=== PATIENT | male | born 1940 | race Hispanic/Latino ===

== ENCOUNTER → 2019-03-21 | Outpatient (CLI) | payer MEDICARE | LOC: SLEEP 19:51 | PROVIDERS: ATTEND Internal Medicine Pulmonary Disease | DX: G47.33 Obstructive sleep apnea (adult) (pediatric) (principal) | CPT/HCPCS: 95811 ==

== ENCOUNTER 2019-04-11 16:12 | Emergency (ER) | payer MEDICARE ==
[~2019-04-11] VITALS: Ht 170.2 cm; Wt 106.6 kg
--- OUTSIDE RECORDS SUMMARY | 2019-04-11 16:15 | XMS REPORT ---
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 Allergies, Adverse Reactions, Alerts Allergy Name Allergy Type Status Severity Reaction(s) Onset Date Inactive Date Treating Clinician Comments No Known Allergies DA Active U 2019-02-28 00:00:00 No Known Allergies DA Active U 2019-01-21 00:00:00 No Known Allergies DA Active U 2018-02-05 00:00:00 No Known Drug Intolerances DA Active U 2007-02-03 00:00:00 No Known Contrast Allergies DA Active U 2007-02-03 00:00:00 No Known Drug Allergies DA Active U 2007-02-03 00:00:00 No Known Food Allergies DA Active U 2007-02-03 00:00:00 No Known Other Allergies DA Active U 2007-02-03 00:00:00 Medications This patient has no known medications. Results Test Description Test Time Test Comments Text Results Atomic Results Result Comments - XR ABDOMEN AP 1 V 2019-04-01 11:40:00 FAX: Silvia Ortega MD [phone] [place]: B St: [facility] FAX: Shahrzad Lewis MD [phone] FAX: Taiwo Aguillon I [phone] Name: TUAN FREGOSO [facility] : 1940 Age/S: 78/M [address] [facility] Unit #: [id number] Loc: V.3108 [place] [address] Phys: Shahrzad Jaeger MD Acct: [id number] Dis Date: Status: ADM IN PHONE #: [phone] Exam Date: 04/01/2019 1120 FAX #: [phone] Reason: ABDOMINAL PAIN EXAMS: CPT CODE: [id number] XR ABDOMEN AP 1 V 55225 HISTORY: ABDOMINAL PAIN TECHNIQUE: AP abdomen x-ray COMPARISON: None FINDINGS: Nonobstructive bowel gas pattern. No significant stool burden. No intra-abdominal mass effect. No abnormal calcifications are observed. Prior cholecystectomy. There are degenerative changes throughout the visualized spine. Visualized thorax is within normal limits. IMPRESSION: No radiographic evidence of acute intra-abdominal process. Location: [facility] at 1140 Reported and signed by: Tylor Soriano MD CC: Silvia Jo MD; Shahrzad Jaeger MD; Taiwo Lowery MD Technologist: RT LEONEL(R) Trnscrd Date/Time/By: 04/01/2019 (5138) : By: [email or web address] Orig Print D/T: S: 04/01/2019 (6326) PAGE 1 Signed Report URINALYSIS COMPLETE 2019-04-01 01:04:00 UA COLOR (test code=COLU) YELLOW YELLOW UA APPEARANCE (test code=APPU) CLEAR CLEAR UA GLUCOSE DIPSTICK (test code=DGLUU) NEGATIVE mg/dL NEGATIVE UA BILIRUBIN DIPSTICK (test code=BILU) NEGATIVE mg/dL NEGATIVE UA KETONE DIPSTICK (test code=KETU) NEGATIVE mg/dL NEGATIVE UA SPECIFIC GRAVITY (test code=SGU) 1.022 1.001-1.035 UA BLOOD DIPSTICK (test code=HIRO) 0.03 mg/dL (Trace) mg/dL NEGATIVE UA PH DIPSTICK (test code=JUSITCE) 5.0 5.0-8.0 UA PROTEIN DIPSTICK (test code=PROU) 20 (Trace) mg/dL NEGATIVE UA UROBILINIOGEN DIPSTICK (test code=URO) Normal mg/dL NEGATIVE UA NITRITE DIPSTICK (test code=RAMON) NEGATIVE NEGATIVE UA LEUKOCYTE ESTERASE W REFLEX (test code=LEUUR) 250 Birdie/uL (2+) Birdie/uL NEGATIVE UA WBC (test code=WBCU) 21-50 per HPF 0-5 UA RBC (test code=RBCU) 0-2 #/HPF 0-5 UA EPITHELIAL CELLS (test code=EPIU) FEW per HPF FEW UA BACTERIA (test code=BACU) FEW #/HPF NONE UA MUCUS (test code=MUCU) FEW #/LPF FEW Urine Source? Clean CatchUR NA,[id number] 01:04:00* Test Item Value Reference Range Comments UR NA,RANDOM (test code=MICHAEL) 40 mmol/L 20-110 Urine Source? Clean CatchUR PROTEIN/CREATININE [id number] 01:04:00* Test Item Value Reference Range Comments UR PROTEIN RANDOM (test code=PROTU) 28.9 mg/dL 0.0-11.9 Protein levels may be falsely elevated in patients withelevated level of aminoglycoside antibiotics in CSF and inhighly concentrated urine specimens. If false elevation issuspected, contact lab for alternated testing technique. UR CREATININE RANDOM (test code=CREATU) 150.0 mg/dL 30-125 PROTEIN/CREATININE RATIO (test code=P/CRATIO) 0.19 RATIO 0.0-0.20 Urine Source? Clean CatchURINALYSIS [id number] 00:52:00* Test Item Value Reference Range Comments UA COLOR (test code=COLU) YELLOW YELLOW UA APPEARANCE (test code=APPU) CLEAR CLEAR UA GLUCOSE DIPSTICK (test code=DGLUU) NEGATIVE mg/dL NEGATIVE UA BILIRUBIN DIPSTICK (test code=BILU) NEGATIVE mg/dL NEGATIVE UA KETONE DIPSTICK (test code=KETU) NEGATIVE mg/dL NEGATIVE UA SPECIFIC GRAVITY (test code=SGU) 1.022 1.001-1.035 UA BLOOD DIPSTICK (test code=HIRO) 0.03 mg/dL (Trace) mg/dL NEGATIVE UA PH DIPSTICK (test code=JUSTICE) 5.0 5.0-8.0 UA PROTEIN DIPSTICK (test code=PROU) 20 (Trace) mg/dL NEGATIVE UA UROBILINIOGEN DIPSTICK (test code=URO) Normal mg/dL NEGATIVE UA NITRITE DIPSTICK (test code=RAMON) NEGATIVE NEGATIVE UA LEUKOCYTE ESTERASE W REFLEX (test code=LEUUR) 250 Birdie/uL (2+) Birdie/uL NEGATIVE UA WBC (test code=WBCU) 21-50 per HPF 0-5 UA RBC (test code=RBCU) 0-2 #/HPF 0-5 UA EPITHELIAL CELLS (test code=EPIU) FEW per HPF FEW UA BACTERIA (test code=BACU) FEW #/HPF NONE UA MUCUS (test code=MUCU) FEW #/LPF FEW Urine Source? [facility] C[facility] NA,[id number] 00:52:00* Test Item Value Reference Range Comments UR NA,RANDOM (test code=MICHAEL) 40 mmol/L 20-110 Urine Source? Clean [facility]UR PROTEIN/CREATININE [id number] 00:52:00* Test Item Value Reference Range Comments UR PROTEIN RANDOM (test code=PROTU) mg/dL 0.0-11.9 UR CREATININE RANDOM (test code=CREATU) mg/dL 30-125 PROTEIN/CREATININE RATIO (test code=P/CRATIO) RATIO 0.0-0.20 Urine Source? Clean CatchURINALYSIS [id number] 00:51:00* Test Item Value Reference Range Comments UA COLOR (test code=COLU) YELLOW YELLOW UA APPEARANCE (test code=APPU) CLEAR CLEAR UA GLUCOSE DIPSTICK (test code=DGLUU) NEGATIVE mg/dL NEGATIVE UA BILIRUBIN DIPSTICK (test code=BILU) NEGATIVE mg/dL NEGATIVE UA KETONE DIPSTICK (test code=KETU) NEGATIVE mg/dL NEGATIVE UA SPECIFIC GRAVITY (test code=SGU) 1.022 1.001-1.035 UA BLOOD DIPSTICK (test code=HIRO) 0.03 mg/dL (Trace) mg/dL NEGATIVE UA PH DIPSTICK (test code=JUSTICE) 5.0 5.0-8.0 UA PROTEIN DIPSTICK (test code=PROU) 20 (Trace) mg/dL NEGATIVE UA UROBILINIOGEN DIPSTICK (test code=URO) Normal mg/dL NEGATIVE UA NITRITE DIPSTICK (test code=RAMON) NEGATIVE NEGATIVE UA LEUKOCYTE ESTERASE W REFLEX (test code=LEUUR) 250 Birdie/uL (2+) Birdie/uL NEGATIVE UA WBC (test code=WBCU) 21-50 per HPF 0-5 UA RBC (test code=RBCU) 0-2 #/HPF 0-5 UA EPITHELIAL CELLS (test code=EPIU) FEW per HPF FEW UA BACTERIA (test code=BACU) FEW #/HPF NONE UA MUCUS (test code=MUCU) FEW #/LPF FEW Urine Source? Clean CatchUR NA,[id number] 00:51:00* Test Item Value Reference Range Comments UR NA,RANDOM (test code=MICHAEL) mmol/L 20-110 Urine Source? Clean CatchUR PROTEIN/CREATININE [id number] 00:51:00* Test Item Value Reference Range Comments UR PROTEIN RANDOM (test code=PROTU) mg/dL 0.0-11.9 UR CREATININE RANDOM (test code=CREATU) mg/dL 30-125 PROTEIN/CREATININE RATIO (test code=P/CRATIO) RATIO 0.0-0.20 Urine Source? Clean CatchURINALYSIS [id number] 00:46:00* Test Item Value Reference Range Comments UA COLOR (test code=COLU) YELLOW YELLOW UA APPEARANCE (test code=APPU) CLEAR CLEAR UA GLUCOSE DIPSTICK (test code=DGLUU) NEGATIVE mg/dL NEGATIVE UA BILIRUBIN DIPSTICK (test code=BILU) NEGATIVE mg/dL NEGATIVE UA KETONE DIPSTICK (test code=KETU) NEGATIVE mg/dL NEGATIVE UA SPECIFIC GRAVITY (test code=SGU) 1.022 1.001-1.035 UA BLOOD DIPSTICK (test code=HIRO) 0.03 mg/dL (Trace) mg/dL NEGATIVE UA PH DIPSTICK (test code=JUSTICE) 5.0 5.0-8.0 UA PROTEIN DIPSTICK (test code=PROU) 20 (Trace) mg/dL NEGATIVE UA UROBILINIOGEN DIPSTICK (test code=URO) Normal mg/dL NEGATIVE UA NITRITE DIPSTICK (test code=RAMON) NEGATIVE NEGATIVE UA LEUKOCYTE ESTERASE W REFLEX (test code=LEUUR) 250 Birdie/uL (2+) Birdie/uL NEGATIVE UA WBC (test code=WBCU) per HPF 0-5 UA RBC (test code=RBCU) per HPF 0-5 UA EPITHELIAL CELLS (test code=EPIU) per HPF Few UA BACTERIA (test code=BACU) per HPF NONE Urine Source? Clean CatchUR NA,[id number] 00:46:00* Test Item Value Reference Range Comments UR NA,RANDOM (test code=MICHAEL) mmol/L 20-110 Urine Source? Clean CatchUR PROTEIN/CREATININE [id number] 00:46:00* Test Item Value Reference Range Comments UR PROTEIN RANDOM (test code=PROTU) mg/dL 0.0-11.9 UR CREATININE RANDOM (test code=CREATU) mg/dL 30-125 PROTEIN/CREATININE RATIO (test code=P/CRATIO) RATIO 0.0-0.20 Urine Source? Clean CatchCOMPREHENSIVE METABOLIC [id number] 14:28:00* Test Item Value Reference Range Comments SODIUM (test code=NA) 140 mmol/L 136-145 POTASSIUM (test code=K) 4.0 mmol/L 3.5-5.1 CHLORIDE (test code=CL) 104.0 mmol/L 98-107 CARBON DIOXIDE (test code=CO2) 28.0 mmol/L 21-32 ANION GAP (test code=GAP) 12.0 10-20 GLUCOSE (test code=GLU) 111 mg/dL 74-106 BLOOD UREA NITROGEN (test code=BUN) 35 mg/dL 7-18 GLOMERULAR FILTRATION RATE (test code=GFR) 59 mL/min >=60 Estimated GFR by using Modified MDRD formula.Chronic kidney disease is defined as either kidney damageor GFR <60 mL/min/1.73 m2 for >3 months. CREATININE (test code=CREAT) 1.20 mg/dL 0.7-1.3 BUN/CREATININE RATIO (test code=BUN/CREA) 29.2 10-20 TOTAL PROTEIN (test code=PROT) 6.9 gram/dL 6.4-8.2 ALBUMIN (test code=ALB) 2.8 g/dL 3.4-5.0 GLOBULIN (test code=GLOB) 4.1 gram/dL 2.7-4.2 ALBUMIN/GLOBULIN RATIO (test code=A/G) 0.7 0.75-1.50 CALCIUM (test code=CA) 8.7 mg/dL 8.5-10.1 BILIRUBIN TOTAL (test code=BILT) 0.30 mg/dL 0.0-1.0 SGOT/AST (test code=AST) 16 IUnit/L 15-37 SGPT/ALT (test code=ALT) 31 IUnit/L 12-78 ALKALINE PHOSPHATASE TOTAL (test code=ALKP) 137 IUnit/L 45-117 Note change in reference range due to change in reagent. COMPREHENSIVE METABOLIC [id number] 14:19:00* Test Item Value Reference Range Comments SODIUM (test code=NA) 140 mmol/L 136-145 POTASSIUM (test code=K) 4.0 mmol/L 3.5-5.1 CHLORIDE (test code=CL) 104.0 mmol/L 98-107 CARBON DIOXIDE (test code=CO2) mmol/L 21-32 ANION GAP (test code=GAP) 10-20 GLUCOSE (test code=GLU) mg/dL 74-106 BLOOD UREA NITROGEN (test code=BUN) mg/dL 7-18 GLOMERULAR FILTRATION RATE (test code=GFR) mL/min >=60 CREATININE (test code=CREAT) mg/dL 0.7-1.3 BUN/CREATININE RATIO (test code=BUN/CREA) 10-20 TOTAL PROTEIN (test code=PROT) gram/dL 6.4-8.2 ALBUMIN (test code=ALB) g/dL 3.4-5.0 GLOBULIN (test code=GLOB) gram/dL 2.7-4.2 ALBUMIN/GLOBULIN RATIO (test code=A/G) 0.75-1.50 CALCIUM (test code=CA) mg/dL 8.5-10.1 BILIRUBIN TOTAL (test code=BILT) mg/dL 0.0-1.0 SGOT/AST (test code=AST) IUnit/L 15-37 SGPT/ALT (test code=ALT) IUnit/L 12-78 ALKALINE PHOSPHATASE TOTAL (test code=ALKP) IUnit/L 45-117 [id number] 14:26:00* Test Item Value Reference Range Comments GLYCOSYLATED HEMOGLOBIN (HA1C) (test code=GLYHGB) 5.9 % HbA1 SUGGESTED DIAGNOSIS: HbA1C (%) Diabetic >6.4Prediabetes 5.7 - 6.4Normal <5.7 ESTIMATED AVERAGE GLUCOSE (test code=EAG) 123 MG/DL - US RETRO [id number] 12:49:00 Name: TUAN FREGOSO [facility] : 1940 Age/S: 78 / M [address] [facility] Unit #: [id number] Loc: [place] [address] Phys: Shahrzad Jaeger MD Acct: [id number] Dis Date: Status: ADM IN PHONE #: [phone] Exam Date: 03/30/2019 1209 FAX #: [phone] Reason: POOR KIDNEY FUNCTION EXAMS: CPT CODE: [id number] RETRO LTD 73056 HISTORY: POOR KIDNEY FUNCTION TECHNIQUE: Static grayscale and color Doppler images from real-time sonographic evaluation of the bilateral kidneys. Correlation with CT 01/02/19. FINDINGS: Limited visualization due to body habitus. Right kidney measures 11.2 x 5.7 x 5.4 cm. Normal parenchymal echogenicity. No mass or calculus. No hydronephrosis. Left kidney measures 11.0 x 5.4 x 5.0 cm. Normal parenchymal echogenicity. No mass or calculus. No hydronephrosis. IMPRESSION: No renal parenchymal abnormality. No hydronephrosis. LOCATION: [facility] at 1249 Reported and signed by: Libby King D.O. CC: Silvia Jo MD; Shahrzad Jaeger MD; Taiwo Lowery MD Technologist: VANNESA ZIMMERMAN Trnidb Date/Time: 03/30/2019 (8185) [email or web address] Orig Print D/T: S: 03/30/2019 (3287) Probe: PAGE 1 Signed Report COMPREHENSIVE METABOLIC [id number] 19:17:00* Test Item Value Reference Range Comments SODIUM (test code=NA) 140 mmol/L 136-145 POTASSIUM (test code=K) 3.9 mmol/L 3.5-5.1 CHLORIDE (test code=CL) 103.0 mmol/L 98-107 CARBON DIOXIDE (test code=CO2) 28.0 mmol/L 21-32 ANION GAP (test code=GAP) 12.9 10-20 GLUCOSE (test code=GLU) 116 mg/dL 74-106 BLOOD UREA NITROGEN (test code=BUN) 46 mg/dL 7-18 GLOMERULAR FILTRATION RATE (test code=GFR) 49 mL/min >=60 Estimated GFR by using Modified MDRD formula.Chronic kidney disease is defined as either kidney damageor GFR <60 mL/min/1.73 m2 for >3 months. CREATININE (test code=CREAT) 1.40 mg/dL 0.7-1.3 BUN/CREATININE RATIO (test code=BUN/CREA) 32.9 10-20 TOTAL PROTEIN (test code=PROT) 7.2 gram/dL 6.4-8.2 ALBUMIN (test code=ALB) 2.9 g/dL 3.4-5.0 GLOBULIN (test code=GLOB) 4.3 gram/dL 2.7-4.2 ALBUMIN/GLOBULIN RATIO (test code=A/G) 0.7 0.75-1.50 CALCIUM (test code=CA) 8.7 mg/dL 8.5-10.1 BILIRUBIN TOTAL (test code=BILT) 0.30 mg/dL 0.0-1.0 SGOT/AST (test code=AST) 17 IUnit/L 15-37 SGPT/ALT (test code=ALT) 42 IUnit/L 12-78 ALKALINE PHOSPHATASE TOTAL (test code=ALKP) 161 IUnit/L 45-117 Note change in reference range due to change in reagent. COMPREHENSIVE METABOLIC [id number] 19:13:00* Test Item Value Reference Range Comments SODIUM (test code=NA) 140 mmol/L 136-145 POTASSIUM (test code=K) 3.9 mmol/L 3.5-5.1 CHLORIDE (test code=CL) 103.0 mmol/L 98-107 CARBON DIOXIDE (test code=CO2) mmol/L 21-32 ANION GAP (test code=GAP) 10-20 GLUCOSE (test code=GLU) mg/dL 74-106 BLOOD UREA NITROGEN (test code=BUN) mg/dL 7-18 GLOMERULAR FILTRATION RATE (test code=GFR) mL/min >=60 CREATININE (test code=CREAT) mg/dL 0.7-1.3 BUN/CREATININE RATIO (test code=BUN/CREA) 10-20 TOTAL PROTEIN (test code=PROT) gram/dL 6.4-8.2 ALBUMIN (test code=ALB) g/dL 3.4-5.0 GLOBULIN (test code=GLOB) gram/dL 2.7-4.2 ALBUMIN/GLOBULIN RATIO (test code=A/G) 0.75-1.50 CALCIUM (test code=CA) mg/dL 8.5-10.1 BILIRUBIN TOTAL (test code=BILT) mg/dL 0.0-1.0 SGOT/AST (test code=AST) IUnit/L 15-37 SGPT/ALT (test code=ALT) IUnit/L 12-78 ALKALINE PHOSPHATASE TOTAL (test code=ALKP) IUnit/L 45-117 CBC W/AUTO [id number] 18:48:00* Test Item Value Reference Range Comments WHITE BLOOD CELL (test code=WBC) 10.1 K/mm3 4.5-12.5 RED BLOOD CELL (test code=RBC) 4.83 mill/mm3 4.0-5.8 HEMOGLOBIN (test code=HGB) 14.0 gram/dL 13.0-17.5 HEMATOCRIT (test code=HCT) 44.2 % 42.0-52.0 MEAN CELL VOLUME (test code=MCV) 91.5 fL 80-98 MEAN CELL HGB (test code=MCH) 29.0 picogram 27.0-33.0 MEAN CELL HGB CONCETRATION (test code=MCHC) 31.7 gram/dL 33.0-36.0 RED CELL DISTRIBUTION WIDTH (test code=RDW) 13.4 % 11.6-16.2 RED CELL DISTRIBUTION WIDTH SD (test code=RDW-SD) 45.4 fL 37.0-51.0 PLATELET COUNT (test code=PLT) 205 K/mm3 150-450 MEAN PLATELET VOLUME (test code=MPV) 10.1 fL 6.7-11.0 NEUTROPHIL % (test code=NT%) 75.1 % 39.0-69.0 IMMATURE GRANULOCYTE % (test code=IG%) 2.1 % 0.0-5.0 LYMPHOCYTE % (test code=LY%) 10.5 % 25.0-55.0 MONOCYTE % (test code=MO%) 10.8 % 0.0-10.0 EOSINOPHIL % (test code=EO%) 1.1 % 0.0-5.0 BASOPHIL % (test code=BA%) 0.4 % 0.0-1.0 NUCLEATED RBC % (test code=NRBC%) 0.0 % 0-0 NEUTROPHIL # (test code=NT#) 7.60 K/mm3 1.8-7.7 IMMATURE GRANULOCYTE # (test code=IG#) 0.21 x10 3/uL 0-0.03 LYMPHOCYTE # (test code=LY#) 1.06 K/mm3 1.0-5.0 MONOCYTE # (test code=MO#) 1.09 K/mm3 0-0.8 EOSINOPHIL # (test code=EO#) 0.11 K/mm3 0.0-0.5 BASOPHIL # (test code=BA#) 0.04 K/mm3 0.0-0.2 NUCLEATED RBC # (test code=NRBC#) 0.00 K/mm3 0.0-0.1 - US SCROTUM AND [id number] 18:47:00 Name: TUAN FREGOSO [facility] : 1940 Age/S: 78 / M [address] [facility] Unit #: [id number] Loc: [place] [address] Phys: Taiwo Lowery MD Acct: [id number] Dis Date: Status: ADM IN PHONE #: [phone] Exam Date: 03/28/2019 0876 FAX #: [phone] Reason: SWOLLEN SCROTUM EXAMS: CPT CODE: [id number] US SCROTUM AND CNTS 05236 EXAM: Scrotal ultrasound and duplex sonography; INFORMATION: Swollen scrotum; sepsis; UTI; TECHNIQUE AND FINDINGS: Grayscale imaging was combined with color Doppler sonography and spectral analysis. FINDINGS: The testicles of normal size and shape. They show homogeneous echotexture normal flow pattern on Doppler exam. The right testicle measures 2.9 x 2.7 x 2.7 cm. The left testicle measures 3.5 x 2.2 x 3.1 cm. There are small epididymal cysts on the right, measuring around 1 cm in diameter. Otherwise, the epididymis is unremarkable bilaterally. Partially septated moderate right- sided hydrocele and small left-sided hydrocele. There is diffuse thickening of the scrotal wall and there is a focal area of thickening with small hypoechoic fluid collections and significant hyperemia in the periphery of these collections. IMPRESSION: 1. Thickening of the scrotal wall with signs of inflammation and probable small abscesses inferior to the right testicle. 2. No testicular abnorma lities. 3. Small right epididymal cysts. 4. Partially septated r ight hydrocele and small left hydrocele. Location code: [facility] at 1847 Reported and signed by: Cedrick Song M.D. CC: Silvia Jo MD; Taiwo Eid MD Technologist: Ashwin Gan Trnscb Date/Time: 03/28/2019 (1846) [email or web address] Orig Print D/T: S: 03/28/2019 (1849) Probe: PAGE 1 Signed Report BASIC METABOLIC [id number] 07:48:00* Test Item Value Reference Range Comments SODIUM (test code=NA) 141 mmol/L 136-145 POTASSIUM (test code=K) 4.0 mmol/L 3.5-5.1 CHLORIDE (test code=CL) 109.0 mmol/L 98-107 CARBON DIOXIDE (test code=CO2) 26.0 mmol/L 21-32 ANION GAP (test code=GAP) 10.0 10-20 GLUCOSE (test code=GLU) 111 mg/dL 74-106 BLOOD UREA NITROGEN (test code=BUN) 34 mg/dL 7-18 GLOMERULAR FILTRATION RATE (test code=GFR) 45 mL/min >=60 Estimated GFR by using Modified MDRD formula.Chronic kidney disease is defined as either kidney damageor GFR <60 mL/min/1.73 m2 for >3 months. CREATININE (test code=CREAT) 1.50 mg/dL 0.7-1.3 BUN/CREATININE RATIO (test code=BUN/CREA) 22.7 10-20 CALCIUM (test code=CA) 8.8 mg/dL 8.5-10.1 BASIC METABOLIC [id number] 07:39:00* Test Item Value Reference Range Comments SODIUM (test code=NA) 141 mmol/L 136-145 POTASSIUM (test code=K) 4.0 mmol/L 3.5-5.1 CHLORIDE (test code=CL) 109.0 mmol/L 98-107 CARBON DIOXIDE (test code=CO2) mmol/L 21-32 ANION GAP (test code=GAP) 10-20 GLUCOSE (test code=GLU) mg/dL 74-106 BLOOD UREA NITROGEN (test code=BUN) mg/dL 7-18 GLOMERULAR FILTRATION RATE (test code=GFR) mL/min >=60 CREATININE (test code=CREAT) mg/dL 0.7-1.3 BUN/CREATININE RATIO (test code=BUN/CREA) 10-20 CALCIUM (test code=CA) mg/dL 8.5-10.1 BASIC METABOLIC [id number] 12:13:00* Test Item Value Reference Range Comments SODIUM (test code=NA) 142 mmol/L 136-145 POTASSIUM (test code=K) 3.9 mmol/L 3.5-5.1 CHLORIDE (test code=CL) 112.0 mmol/L 98-107 CARBON DIOXIDE (test code=CO2) 23.0 mmol/L 21-32 ANION GAP (test code=GAP) 10.9 10-20 GLUCOSE (test code=GLU) 113 mg/dL 74-106 BLOOD UREA NITROGEN (test code=BUN) 29 mg/dL 7-18 GLOMERULAR FILTRATION RATE (test code=GFR) 59 mL/min >=60 Estimated GFR by using Modified MDRD formula.Chronic kidney disease is defined as either kidney damageor GFR <60 mL/min/1.73 m2 for >3 months. CREATININE (test code=CREAT) 1.20 mg/dL 0.7-1.3 BUN/CREATININE RATIO (test code=BUN/CREA) 24.2 10-20 CALCIUM (test code=CA) 8.2 mg/dL 8.5-10.1 CBC W/AUTO [id number] 11:12:00* Test Item Value Reference Range Comments WHITE BLOOD CELL (test code=WBC) 9.0 K/mm3 4.5-12.5 RED BLOOD CELL (test code=RBC) 4.32 mill/mm3 4.0-5.8 HEMOGLOBIN (test code=HGB) 12.5 gram/dL 13.0-17.5 HEMATOCRIT (test code=HCT) 39.7 % 42.0-52.0 MEAN CELL VOLUME (test code=MCV) 91.9 fL 80-98 MEAN CELL HGB (test code=MCH) 28.9 picogram 27.0-33.0 MEAN CELL HGB CONCETRATION (test code=MCHC) 31.5 gram/dL 33.0-36.0 RED CELL DISTRIBUTION WIDTH (test code=RDW) 14.0 % 11.6-16.2 RED CELL DISTRIBUTION WIDTH SD (test code=RDW-SD) 47.0 fL 37.0-51.0 PLATELET COUNT (test code=PLT) 152 K/mm3 150-450 MEAN PLATELET VOLUME (test code=MPV) 10.4 fL 6.7-11.0 NEUTROPHIL % (test code=NT%) 80.7 % 39.0-69.0 IMMATURE GRANULOCYTE % (test code=IG%) 0.8 % 0.0-5.0 LYMPHOCYTE % (test code=LY%) 6.9 % 25.0-55.0 MONOCYTE % (test code=MO%) 10.3 % 0.0-10.0 EOSINOPHIL % (test code=EO%) 1.2 % 0.0-5.0 BASOPHIL % (test code=BA%) 0.1 % 0.0-1.0 NUCLEATED RBC % (test code=NRBC%) 0.0 % 0-0 NEUTROPHIL # (test code=NT#) 7.25 K/mm3 1.8-7.7 IMMATURE GRANULOCYTE # (test code=IG#) 0.07 x10 3/uL 0-0.03 LYMPHOCYTE # (test code=LY#) 0.62 K/mm3 1.0-5.0 MONOCYTE # (test code=MO#) 0.93 K/mm3 0-0.8 EOSINOPHIL # (test code=EO#) 0.11 K/mm3 0.0-0.5 BASOPHIL # (test code=BA#) 0.01 K/mm3 0.0-0.2 NUCLEATED RBC # (test code=NRBC#) 0.00 K/mm3 0.0-0.1 B-TYPE NATRIURETIC [id number] 23:15:00* Test Item Value Reference Range Comments B-TYPE NATRIURETIC PEPTIDE (test code=BNP) 352.50 pgram/mL 0-100 - XR CHEST 1 [id number] 21:27:00 FAX: Silvia Ortega MD [phone] [place]: St: [facility] FAX: Taiwo Aguillon I [phone] Name: TUAN FREGOSO [facility] : 1940 Age/S: 78/M [address] [facility] Unit #: [id number] Loc: .[address] [place] [address] Phys: Taiwo Lowery MD Acct: [id number] Dis Date: Status: ADM IN PHONE #: [phone] Exam Date: 03/26/20192105 FAX #: [phone] Reason: respiratory distress EXAMS: CPT CODE: [id number] XR CHEST 1 V [id number] EXAM: Chest x- ray, one view; INFORMATION: Respiratory distress; sepsis; IMPRESSION: 1. No evidence of active cardiopulmonary disease. 2. No significant change compared with the study from March 24, 2019. Location code: [facility] at 2127 Reported and signed by: Cedrick Song M.D. CC: Silvia Jo MD; Taiwo Lowery MD Technologist: Katie Crespo) Trnscrd Date/Time/By: 03/26/2019 (2126) : By: JackelynGRShay Orig Print D/T: S: 03/26/2019 (2129) PAGE 1 Signed Report CBC W/AUTO [id number] 12:08:00* Test Item Value Reference Range Comments WHITE BLOOD CELL (test code=WBC) 18.9 K/mm3 4.5-12.5 RED BLOOD CELL (test code=RBC) 4.64 mill/mm3 4.0-5.8 HEMOGLOBIN (test code=HGB) 13.5 gram/dL 13.0-17.5 HEMATOCRIT (test code=HCT) 42.9 % 42.0-52.0 MEAN CELL VOLUME (test code=MCV) 92.5 fL 80-98 MEAN CELL HGB (test code=MCH) 29.1 picogram 27.0-33.0 MEAN CELL HGB CONCETRATION (test code=MCHC) 31.5 gram/dL 33.0-36.0 RED CELL DISTRIBUTION WIDTH (test code=RDW) 14.3 % 11.6-16.2 RED CELL DISTRIBUTION WIDTH SD (test code=RDW-SD) 48.3 fL 37.0-51.0 PLATELET COUNT (test code=PLT) 162 K/mm3 150-450 MEAN PLATELET VOLUME (test code=MPV) 10.4 fL 6.7-11.0 NEUTROPHIL % (test code=NT%) 90.2 % 39.0-69.0 IMMATURE GRANULOCYTE % (test code=IG%) 1.0 % 0.0-5.0 LYMPHOCYTE % (test code=LY%) 3.7 % 25.0-55.0 MONOCYTE % (test code=MO%) 4.9 % 0.0-10.0 EOSINOPHIL % (test code=EO%) 0.0 % 0.0-5.0 BASOPHIL % (test code=BA%) 0.2 % 0.0-1.0 NUCLEATED RBC % (test code=NRBC%) 0.0 % 0-0 NEUTROPHIL # (test code=NT#) 17.07 K/mm3 1.8-7.7 IMMATURE GRANULOCYTE # (test code=IG#) 0.18 x10 3/uL 0-0.03 LYMPHOCYTE # (test code=LY#) 0.69 K/mm3 1.0-5.0 MONOCYTE # (test code=MO#) 0.92 K/mm3 0-0.8 EOSINOPHIL # (test code=EO#) 0.00 K/mm3 0.0-0.5 BASOPHIL # (test code=BA#) 0.03 K/mm3 0.0-0.2 NUCLEATED RBC # (test code=NRBC#) 0.00 K/mm3 0.0-0.1 BASIC METABOLIC [id number] 12:06:00* Test Item Value Reference Range Comments SODIUM (test code=NA) 141 mmol/L 136-145 POTASSIUM (test code=K) 4.4 mmol/L 3.5-5.1 CHLORIDE (test code=CL) 114.0 mmol/L 98-107 CARBON DIOXIDE (test code=CO2) 21.0 mmol/L 21-32 ANION GAP (test code=GAP) 10.4 10-20 GLUCOSE (test code=GLU) 157 mg/dL 74-106 BLOOD UREA NITROGEN (test code=BUN) 30 mg/dL 7-18 GLOMERULAR FILTRATION RATE (test code=GFR) 49 mL/min >=60 Estimated GFR by using Modified MDRD formula.Chronic kidney disease is defined as either kidney damageor GFR <60 mL/min/1.73 m2 for >3 months. CREATININE (test code=CREAT) 1.40 mg/dL 0.7-1.3 BUN/CREATININE RATIO (test code=BUN/CREA) 21.4 10-20 CALCIUM (test code=CA) 8.1 mg/dL 8.5-10.1 B-TYPE NATRIURETIC [id number] 21:04:00* Test Item Value Reference Range Comments B-TYPE NATRIURETIC PEPTIDE (test code=BNP) 156.66 pgram/mL 0-100 BASIC METABOLIC [id number] 19:34:00* Test Item Value Reference Range Comments SODIUM (test code=NA) 138 mmol/L 136-145 POTASSIUM (test code=K) 4.8 mmol/L 3.5-5.1 CHLORIDE (test code=CL) 109.0 mmol/L 98-107 CARBON DIOXIDE (test code=CO2) 23.0 mmol/L 21-32 ANION GAP (test code=GAP) 10.8 10-20 GLUCOSE (test code=GLU) 94 mg/dL 74-106 BLOOD UREA NITROGEN (test code=BUN) 33 mg/dL 7-18 GLOMERULAR FILTRATION RATE (test code=GFR) 39 mL/min >=60 Estimated GFR by using Modified MDRD formula.Chronic kidney disease is defined as either kidney damageor GFR <60 mL/min/1.73 m2 for >3 months. CREATININE (test code=CREAT) 1.70 mg/dL 0.7-1.3 BUN/CREATININE RATIO (test code=BUN/CREA) 19.4 10-20 CALCIUM (test code=CA) 9.1 mg/dL 8.5-10.1 CREATINE KINASE (CK)2019-03-24 19:34:00* Test Item Value Reference Range Comments CREATINE KINASE (CK) (test code=CK) 149 IUnit/L 26-208 [id number] 19:34:00* Test Item Value Reference Range Comments MAGNESIUM (test code=MAG) 2.1 mg/dL 1.8-2.4 [id number] 19:34:00* Test Item Value Reference Range Comments TROPONIN-I (test code=TROPI) <0.015 ng/mL 0-0.045 LACTIC [id number] 19:30:00* Test Item Value Reference Range Comments LACTIC ACID (test code=LACT) 1.7 mmol/L 0.4-1.9 PROTHROMBIN [id number] 19:27:00* Test Item Value Reference Range Comments PROTHROMBIN TIME PATIENT (test code=PTP) 12.7 seconds 9.0-14.0 INTERNATIONAL NORMAL RATIO (test code=INR) 1.1 0.8-1.2 The therapeutic range for oral anticoagulant therapy formost indications is an international normalized ratio (INR)of between 2.0 and 3.0. The recommended therapeutic INRrange for various clinical situations is listed below: Clinical Situation INR range Pulmonary e mbolism treatment (2.0-3.0)Venous thrombosis treatmentVenous thrombosis prophylaxis (high risk surgery)Prevention of systemic embolism from: Acute myocardial infarction Valvular heart disease Atrial fibrillation Mechanical prosthetic heart valves (2.5-3.5) IS PATIENT ON ANTICOAGULANTS? NTHROMBOPLASTIN TIME [id number] 19:27:00* Test Item Value Reference Range Comments THROMBOPLASTIN TIME PARTIAL (test code=PTT) 30.7 seconds 25.0-36.5 IS PATIENT ON ANTICOAGULANTS? NBASIC METABOLIC [id number] 19:24:00* Test Item Value Reference Range Comments SODIUM (test code=NA) 138 mmol/L 136-145 POTASSIUM (test code=K) 4.8 mmol/L 3.5-5.1 CHLORIDE (test code=CL) 109.0 mmol/L 98-107 CARBON DIOXIDE (test code=CO2) mmol/L 21-32 ANION GAP (test code=GAP) 10-20 GLUCOSE (test code=GLU) mg/dL 74-106 BLOOD UREA NITROGEN (test code=BUN) mg/dL 7-18 GLOMERULAR FILTRATION RATE (test code=GFR) mL/min >=60 CREATININE (test code=CREAT) mg/dL 0.7-1.3 BUN/CREATININE RATIO (test code=BUN/CREA) 10-20 CALCIUM (test code=CA) 9.1 mg/dL 8.5-10.1 CREATINE KINASE (CK)2019-03-24 19:24:00* Test Item Value Reference Range Comments CREATINE KINASE (CK) (test code=CK) IUnit/L 26-208 [id number] 19:24:00* Test Item Value Reference Range Comments MAGNESIUM (test code=MAG) mg/dL 1.8-2.4 [id number] 19:24:00* Test Item Value Reference Range Comments TROPONIN-I (test code=TROPI) ng/mL 0-0.045 CBC W/O [id number] 19:21:00* Test Item Value Reference Range Comments WHITE BLOOD CELL (test code=WBC) 27.7 K/mm3 4.5-12.5 RED BLOOD CELL (test code=RBC) 5.20 mill/mm3 4.0-5.8 HEMOGLOBIN (test code=HGB) 15.2 gram/dL 13.0-17.5 HEMATOCRIT (test code=HCT) 47.5 % 42.0-52.0 MEAN CELL VOLUME (test code=MCV) 91.3 fL 80-98 MEAN CELL HGB (test code=MCH) 29.2 picogram 27.0-33.0 MEAN CELL HGB CONCETRATION (test code=MCHC) 32.0 gram/dL 33.0-36.0 RED CELL DISTRIBUTION WIDTH (test code=RDW) 13.9 % 11.6-16.2 PLATELET COUNT (test code=PLT) 207 K/mm3 150-450 MEAN PLATELET VOLUME (test code=MPV) 10.2 fL 6.7-11.0 CBC W/O [id number] 19:18:00* Test Item Value Reference Range Comments WHITE BLOOD CELL (test code=WBC) K/mm3 4.5-12.5 RED BLOOD CELL (test code=RBC) mill/mm3 4.0-5.8 HEMOGLOBIN (test code=HGB) 15.2 gram/dL 13.0-17.5 HEMATOCRIT (test code=HCT) 47.5 % 42.0-52.0 MEAN CELL VOLUME (test code=MCV) fL 80-98 MEAN CELL HGB (test code=MCH) picogram 27.0-33.0 MEAN CELL HGB CONCETRATION (test code=MCHC) gram/dL 33.0-36.0 RED CELL DISTRIBUTION WIDTH (test code=RDW) % 11.6-16.2 PLATELET COUNT (test code=PLT) K/mm3 150-450 MEAN PLATELET VOLUME (test code=MPV) fL 6.7-11.0 - XR CHEST 1 [id number] 18:04:00 FAX: Mela Arellano [phone] [place]: B : [facility] FAX: Shahriar Matute MD [phone] Name: TUAN FREGOSO [facility] : 1940 Age/S: 78/M [address] [facility] Unit #: [id number] Loc: BHAKTI [place] [address] Phys: Mela Blanc MD Acct: [id number] Dis Date: Status: REG ER PHONE #: [phone] Exam Date: 03/24/2019 1726 FAX #: [phone] Reason: WEAKNESS EXAMS: CPT CODE: [id number] XR CHEST 1 V [id number] EXAM: Chest x-ray, one view; INFORMATION: Weakness; FINDINGS: Lungs are clear; no infiltrates, no edema; no effusions; no pneumothorax. The heart is normal in size. Aortic calcifications. IMPRESSION: No evidence of active cardiopulmonary disease. Location code: at 1804 Reported and signed by: Cedrick Song M.D. CC: Mela Blanc MD; Shahriar Esteves Technologist: KACI WILLIAMSON(R) Trnscrd Date/Time/By: 03/24/2019 (1803) : By: JackelynGRW Orig Print D/T: S: 03/24/2019 (1806) PAGE 1 Signed Report URINALYSIS [id number] 17:43:00* Test Item Value Reference Range Comments UA COLOR (test code=COLU) YELLOW YELLOW UA APPEARANCE (test code=APPU) CLOUDY CLEAR UA GLUCOSE DIPSTICK (test code=DGLUU) NEGATIVE mg/dL NEGATIVE UA BILIRUBIN DIPSTICK (test code=BILU) NEGATIVE mg/dL NEGATIVE UA KETONE DIPSTICK (test code=KETU) NEGATIVE mg/dL NEGATIVE UA SPECIFIC GRAVITY (test code=SGU) 1.018 1.001-1.035 UA BLOOD DIPSTICK (test code=HIRO) >1.0 mg/dL NEGATIVE UA PH DIPSTICK (test code=JUSTICE) 5.5 5.0-8.0 UA PROTEIN DIPSTICK (test code=PROU) 70 (1+) mg/dL NEGATIVE UA UROBILINIOGEN DIPSTICK (test code=URO) Normal mg/dL NEGATIVE UA NITRITE DIPSTICK (test code=RAMON) NEGATIVE NEGATIVE UA LEUKOCYTE ESTERASE W REFLEX (test code=LEUUR) 500 Birdie/uL (3+) Birdie/uL NEGATIVE UA WBC (test code=WBCU) >200 per HPF 0-5 UA RBC (test code=RBCU) 151-200 #/HPF 0-5 UA WBC CLUMPS (test code=WBCUCL) >10 /HPF NONE UA EPITHELIAL CELLS (test code=EPIU) None seen per HPF FEW UA BACTERIA (test code=BACU) FEW #/HPF NONE UA MUCUS (test code=MUCU) FEW #/LPF FEW Urine Source? Clean CatchBASIC METABOLIC [id number] 07:21:00* Test Item Value Reference Range Comments SODIUM (test code=NA) 142 mmol/L 136-145 POTASSIUM (test code=K) 4.5 mmol/L 3.5-5.1 CHLORIDE (test code=CL) 110.0 mmol/L 98-107 CARBON DIOXIDE (test code=CO2) 25.0 mmol/L 21-32 ANION GAP (test code=GAP) 11.5 10-20 GLUCOSE (test code=GLU) 85 mg/dL 74-106 BLOOD UREA NITROGEN (test code=BUN) 29 mg/dL 7-18 GLOMERULAR FILTRATION RATE (test code=GFR) 54 mL/min >=60 Estimated GFR by using Modified MDRD formula.Chronic kidney disease is defined as either kidney damageor GFR <60 mL/min/1.73 m2 for >3 months. CREATININE (test code=CREAT) 1.30 mg/dL 0.7-1.3 BUN/CREATININE RATIO (test code=BUN/CREA) 22.3 10-20 CALCIUM (test code=CA) 8.6 mg/dL 8.5-10.1 CBC W/AUTO [id number] 07:03:00* Test Item Value Reference Range Comments WHITE BLOOD CELL (test code=WBC) 7.5 K/mm3 4.5-12.5 RED BLOOD CELL (test code=RBC) 5.57 mill/mm3 4.0-5.8 HEMOGLOBIN (test code=HGB) 16.1 gram/dL 13.0-17.5 HEMATOCRIT (test code=HCT) 52.0 % 42.0-52.0 MEAN CELL VOLUME (test code=MCV) 93.4 fL 80-98 MEAN CELL HGB (test code=MCH) 28.9 picogram 27.0-33.0 MEAN CELL HGB CONCETRATION (test code=MCHC) 31.0 gram/dL 33.0-36.0 RED CELL DISTRIBUTION WIDTH (test code=RDW) 13.6 % 11.6-16.2 RED CELL DISTRIBUTION WIDTH SD (test code=RDW-SD) 46.4 fL 37.0-51.0 PLATELET COUNT (test code=PLT) 210 K/mm3 150-450 MEAN PLATELET VOLUME (test code=MPV) 9.9 fL 6.7-11.0 NEUTROPHIL % (test code=NT%) 76.2 % 39.0-69.0 IMMATURE GRANULOCYTE % (test code=IG%) 0.8 % 0.0-5.0 LYMPHOCYTE % (test code=LY%) 10.7 % 25.0-55.0 MONOCYTE % (test code=MO%) 10.3 % 0.0-10.0 EOSINOPHIL % (test code=EO%) 1.6 % 0.0-5.0 BASOPHIL % (test code=BA%) 0.4 % 0.0-1.0 NUCLEATED RBC % (test code=NRBC%) 0.0 % 0-0 NEUTROPHIL # (test code=NT#) 5.74 K/mm3 1.8-7.7 IMMATURE GRANULOCYTE # (test code=IG#) 0.06 x10 3/uL 0-0.03 LYMPHOCYTE # (test code=LY#) 0.81 K/mm3 1.0-5.0 MONOCYTE # (test code=MO#) 0.78 K/mm3 0-0.8 EOSINOPHIL # (test code=EO#) 0.12 K/mm3 0.0-0.5 BASOPHIL # (test code=BA#) 0.03 K/mm3 0.0-0.2 NUCLEATED RBC # (test code=NRBC#) 0.00 K/mm3 0.0-0.1 MANUAL DIFF REQUIRED (test code=MDIFF) NO COAGULATION TIME [id number] 09:45:00* Test Item Value Reference Range Comments COAGULATION TIME ACTIVATED (test code=ACT) 182 seconds 62.8-88.0 COAGULATION TIME [id number] 09:31:00* Test Item Value Reference Range Comments COAGULATION TIME ACTIVATED (test code=ACT) 175 seconds 62.8-88.0 BASIC METABOLIC [id number] 13:44:00* Test Item Value Reference Range Comments SODIUM (test code=NA) 146 mmol/L 136-145 POTASSIUM (test code=K) 4.4 mmol/L 3.5-5.1 CHLORIDE (test code=CL) 113.0 mmol/L 98-107 CARBON DIOXIDE (test code=CO2) 28.0 mmol/L 21-32 ANION GAP (test code=GAP) 9.4 10-20 GLUCOSE (test code=GLU) 105 mg/dL 74-106 BLOOD UREA NITROGEN (test code=BUN) 33 mg/dL 7-18 GLOMERULAR FILTRATION RATE (test code=GFR) 54 mL/min >=60 Estimated GFR by using Modified MDRD formula.Chronic kidney disease is defined as either kidney damageor GFR <60 mL/min/1.73 m2 for >3 months. CREATININE (test code=CREAT) 1.30 mg/dL 0.7-1.3 BUN/CREATININE RATIO (test code=BUN/CREA) 25.4 10-20 CALCIUM (test code=CA) 8.9 mg/dL 8.5-10.1 BASIC METABOLIC [id number] 13:33:00* Test Item Value Reference Range Comments SODIUM (test code=NA) 146 mmol/L 136-145 POTASSIUM (test code=K) 4.4 mmol/L 3.5-5.1 CHLORIDE (test code=CL) 113.0 mmol/L 98-107 CARBON DIOXIDE (test code=CO2) mmol/L 21-32 ANION GAP (test code=GAP) 10-20 GLUCOSE (test code=GLU) mg/dL 74-106 BLOOD UREA NITROGEN (test code=BUN) mg/dL 7-18 GLOMERULAR FILTRATION RATE (test code=GFR) mL/min >=60 CREATININE (test code=CREAT) mg/dL 0.7-1.3 BUN/CREATININE RATIO (test code=BUN/CREA) 10-20 CALCIUM (test code=CA) mg/dL 8.5-10.1 PROTHROMBIN [id number] 13:10:00* Test Item Value Reference Range Comments PROTHROMBIN TIME PATIENT (test code=PTP) 11.6 seconds 9.0-14.0 INTERNATIONAL NORMAL RATIO (test code=INR) 1.0 0.8-1.2 The therapeutic range for oral anticoagulant therapy formost indications is an international normalized ratio (INR)of between 2.0 and 3.0. The recommended therapeutic INRrange for various clinical situations is listed below: Clinical Situation INR range Pulmonary e mbolism treatment (2.0-3.0)Venous thrombosis treatmentVenous thrombosis prophylaxis (high risk surgery)Prevention of systemic embolism from: Acute myocardial infarction Valvular heart disease Atrial fibrillation Mechanical prosthetic heart valves (2.5-3.5) CBC W/AUTO [id number] 12:58:00* Test Item Value Reference Range Comments WHITE BLOOD CELL (test code=WBC) 7.5 K/mm3 4.5-12.5 RED BLOOD CELL (test code=RBC) 5.17 mill/mm3 4.0-5.8 HEMOGLOBIN (test code=HGB) 15.3 gram/dL 13.0-17.5 HEMATOCRIT (test code=HCT) 49.1 % 42.0-52.0 MEAN CELL VOLUME (test code=MCV) 95.0 fL 80-98 MEAN CELL HGB (test code=MCH) 29.6 picogram 27.0-33.0 MEAN CELL HGB CONCETRATION (test code=MCHC) 31.2 gram/dL 33.0-36.0 RED CELL DISTRIBUTION WIDTH (test code=RDW) 13.6 % 11.6-16.2 RED CELL DISTRIBUTION WIDTH SD (test code=RDW-SD) 47.8 fL 37.0-51.0 PLATELET COUNT (test code=PLT) 194 K/mm3 150-450 MEAN PLATELET VOLUME (test code=MPV) 10.2 fL 6.7-11.0 NEUTROPHIL % (test code=NT%) 67.2 % 39.0-69.0 IMMATURE GRANULOCYTE % (test code=IG%) 1.3 % 0.0-5.0 LYMPHOCYTE % (test code=LY%) 19.4 % 25.0-55.0 MONOCYTE % (test code=MO%) 9.7 % 0.0-10.0 EOSINOPHIL % (test code=EO%) 1.9 % 0.0-5.0 BASOPHIL % (test code=BA%) 0.5 % 0.0-1.0 NUCLEATED RBC % (test code=NRBC%) 0.0 % 0-0 NEUTROPHIL # (test code=NT#) 5.06 K/mm3 1.8-7.7 IMMATURE GRANULOCYTE # (test code=IG#) 0.10 x10 3/uL 0-0.03 LYMPHOCYTE # (test code=LY#) 1.46 K/mm3 1.0-5.0 MONOCYTE # (test code=MO#) 0.73 K/mm3 0-0.8 EOSINOPHIL # (test code=EO#) 0.14 K/mm3 0.0-0.5 BASOPHIL # (test code=BA#) 0.04 K/mm3 0.0-0.2 NUCLEATED RBC # (test code=NRBC#) 0.00 K/mm3 0.0-0.1 - CTA ABD AORTA IF LWEX [id number] 14:38:00 Name: TUAN FREGOSO [facility] : 1940 Age[facility]S: 78 [facility] [address] [facility] [id number] Loc: BHAKTI [place] [address] Phys: Shahriar Bazzi MD Acct: [id number] Dis Date: Status: REG CLI PHONE #: [phone] Exam Date: 01/02/2019 1044 FAX #: [phone] Reason: PVD EXAMS: CPT CODE: [id number] [place] [id number] REASON FOR EXAM: PVD EXAM ORDER DATE: 01/02/2019 10:06 AM Ordering: Shahriar Bazzi MD Attending:Shahriar Bazzi MD Location:[facility] PROCEDURE: - CTA ABD AORTA IF LWEX RO COMPARISON: FINDINGS: Axial images of the abdomen and lower extremities runoff were obtained with IV contrast using CT angiogram protocol. Reconstructed sagittal and coronal images from the axial data were provided. Dose modulation, iterative reconstruction, and/or weight based adjustment of the MA/KV was utilized to reduce the radiation dose to as low as reasonably achievable. Maximum intensity pixel, Volume rendered, Surface shaded rendering, and 3D reconstructed images of the abdominal aorta and lower extremities runoff were provided for interpretation. Int ravenous contrast: 100c of Omnipaque 370 The abdominal aorta is un remarkable. The iliac arteries are within normal limits. The renal arterie s are within normal limits. The celiac trunk is unremarkable. The hepatic and splenic arteries are unremarkable. The superior mesenteric and inferior mesenteric arteries are within normal limits IMPR ESSION: 1. 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 Single vessel runoff in the poste rior tibial artery to the right foot with patent plantar artery. 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 2. Minimal disease of the left SFA. Unremarkable left popliteal artery. Single vessel run off in the posterior tibial artery to the left foot. Patent left plantar artery. 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 at 1438 Reported and signed by: Antoni Colon M.D. PAGE 1 S igned Report (CONTINUED) Name: TUAN FREGOSO [facility] : 1940 Age[facility]S: 78 [facility] M [address] [facility]: [id number] Loc: [place] [address] Phys: Shahriar Bazzi MD Acct: [id number] Dis Date: Status: REG CLI PHONE #: [phone] Exam Date: 01/02/2019 1044 FAX #: [phone] Reason: PVD EXAMS: CPT CODE: [id number] [place] [id number] <Continued> CC: Shahriar Esteves; Shahriar Bazzi M.D. Technologist:Precious Burks RT(R),CT CTDI: DLP: Trnscb Date/Time: 01/02/2019 (9808) [email or web address] Orig Print D/T: S: 01/02/2019 (7319) PAGE 2 Signed Report CREATININE W ESTIMATED [id number] 09:47:00* Test Item Value Reference Range Comments BEDSIDE CREATININE (test code=CREATBED) mg/dL 0.7-1.3 GLOMERULAR FILTRATION RATE POC (test code=GFRBED) 58 >60 CREATININE W ESTIMATED [id number] 09:47:00* Test Item Value Reference Range Comments BEDSIDE CREATININE (test code=CREATBED) 1.21 mg/dL 0.7-1.3 GLOMERULAR FILTRATION RATE POC (test code=GFRBED) > 60 >60 Previously reported result: 58 Edited by: DANIEL on 01/02/19:66178401/02/19 0947: GFRBED previously reported as: 58 *L
[2019-04-11 17:39] LABS: CLARITY,URINE SL CLOUDY (CLEAR); COLOR,URINE YELLOW (YELLOW); KETONES,URINE TRACE (NEGATIVE); LEUKOCYTE ESTERASE ,URINE NEGATIVE (NEGATIVE); NITRITE,URINE NEGATIVE (NEGATIVE); PROTEIN,URINE DIPSTICK TRACE (NEGATIVE); URINE UROBILINOGEN 0.2 mg/dL (0.2 - 1)
[2019-04-11 17:39] LABS: BASOPHILS # (AUTO) 0.1 (0.0-0.1); BASOPHILS % 0.5 % (0.0-1.0); EOSINOPHILS # (AUTO) 0.1 (0.0-0.4); HEMATOCRIT 44.8 % (38.2-49.6); HEMOGLOBIN 13.8 g/dL (14.0-18.0); LYMPHOCYTES # (AUTO) 1.7 (1.0-3.2); LYMPHOCYTES % 15.6 % (18.0-39.1); MEAN CORPUSCULAR HEMOGLOBIN 28.9 pg (28-32); MEAN CORPUSCULAR HGB CONC 30.8 g/dL (31-35); MEAN CORPUSCULAR VOLUME 93.7 fL (81-99); MONOCYTES # (AUTO) 1.2 (0.2-0.8); MONOCYTES % 11.3 % (4.4-11.3); NEUTROPHILS # (AUTO) 7.6 (2.1-6.9); NEUTROPHILS % 70.7 % (38.7-80.0); PLATELET COUNT 313 x10e3/uL (140-360); RED BLOOD COUNT 4.78 x10e6/uL (4.3-5.7); RED CELL DISTRIBUTION WIDTH 13.4 % (11.7-14.4)
[2019-04-11 17:40] LABS: BILIRUBIN,URINE NEGATIVE (NEGATIVE)
[2019-04-11 17:42] LABS: INR 0.98; PROTHROMBIN TIME 13.6 seconds (11.9-14.5)
[2019-04-11 17:43] LABS: PARTIAL THROMBOPLASTIN TIME 28.3 seconds (23.8-35.5)
[2019-04-11 17:54] LABS: ALBUMIN 3.4 g/dL (3.5-5.0); ALBUMIN/GLOBULIN RATIO 0.8 (0.8-2.0); ANION GAP 14.3 mmol/L (8-16); CALCIUM 9.1 mg/dL (8.4-10.2); CREATININE, SERUM 1.25 mg/dL (0.72-1.25); POTASSIUM 4.3 mmol/L (3.5-5.1)
[2019-04-11 18:00] LABS: BACTERIA,URINE FEW /HPF; EPITHELIAL CELLS,URINE FEW /LPF; HYALINE CASTS 0-1 (0-1); RBC,URINE 0-5 /HPF (0-5)
--- NOTE | 2019-04-11 18:50 | Diagnostic Imaging Report ---
Examination: Single AP view of the chest. COMPARISON: None. INDICATION: Swollen legs, IMPRESSION: 1. Lines and Tubes: None 2. Lungs are well-inflated. No consolidation or effusion. 3. Enlarged cardiac silhouette . Central pulmonary venous congestion. Findings suggest mild CHF 4. No acute bony abnormalities. Signed by: Dr. Shahriar Jenkins M.D. on 04/11/2019 6:48 PM
[2019-04-11] MEDS: ASPIRIN 81 MG CHEW TAB PO ONE ×2 (20:28→20:29)
--- NOTE | 2019-04-11 20:40 | NUR ---
DR. CHAMBERLAIN IN TRIAGE FOR EVALUATION OF PT. DR. CHAMBERLAIN EXTENSIVELY DISCUSSED LAB RESULTS AND CHEST XRAY RESULTS. ER MD EDUCATED PT ON FLUID AND SALT RESTRICTION. PT VERBALIZES UNDERSTANDING OF INSTRUCTIONS. PT AND FAMILY MEMBERS HAVE NO FURTHER QUESTIONS AT THIS TIME.
[2019-04-11 20:53] VITALS: BP 149/79
== END 2019-04-11 20:55 | disposition home or self-care (01) ==
LOC: ER 16:12
DX: R06.00 Dyspnea, unspecified (principal); I50.9 Heart failure, unspecified; I10 Essential (primary) hypertension; I25.10 Atherosclerotic heart disease of native coronary artery without angina pectoris; E78.5 Hyperlipidemia, unspecified; R60.9 Edema, unspecified
CPT/HCPCS: 36415; 71045; 80053; 81001; 82550; 82553; 83880; 84484; 85025; 85610; 85730; 87040; 87071; 87086; 87205; 93005; 93970; 99284

== ENCOUNTER → 2020-10-01 | Outpatient (CLI) | payer MEDICARE | LOC: RAD 12:10 | PROVIDERS: ATTEND Family Medicine | DX: I87.331 Chronic venous hypertension (idiopathic) with ulcer and inflammation of right lower extremity (principal); L97.811 Non-pressure chronic ulcer of other part of right lower leg limited to breakdown of skin ==

== ENCOUNTER → 2020-10-01 | Outpatient (CLI) | payer MEDICARE | LOC: RAD 10:40 | PROVIDERS: ATTEND Family Medicine | DX: I87.331 Chronic venous hypertension (idiopathic) with ulcer and inflammation of right lower extremity (principal); L97.811 Non-pressure chronic ulcer of other part of right lower leg limited to breakdown of skin ==

== ENCOUNTER 2020-10-07 08:36 | Outpatient (RCR) | payer MEDICARE | END 2020-10-13 | LOC: WCC 08:36 | PROVIDERS: ATTEND Family Medicine | DX: L97.811 Non-pressure chronic ulcer of other part of right lower leg limited to breakdown of skin (principal); I42.9 Cardiomyopathy, unspecified; L99 Other disorders of skin and subcutaneous tissue in diseases classified elsewhere; R60.0 Localized edema; I70.213 Atherosclerosis of native arteries of extremities with intermittent claudication, bilateral legs; J84.9 Interstitial pulmonary disease, unspecified; I87.2 Venous insufficiency (chronic) (peripheral); I83.93 Asymptomatic varicose veins of bilateral lower extremities; L27.9 Dermatitis due to unspecified substance taken internally; E55.9 Vitamin D deficiency, unspecified; N18.4 Chronic kidney disease, stage 4 (severe); I10 Essential (primary) hypertension; E78.00 Pure hypercholesterolemia, unspecified; G47.33 Obstructive sleep apnea (adult) (pediatric); E66.01 Morbid (severe) obesity due to excess calories; J44.9 Chronic obstructive pulmonary disease, unspecified; M51.36 Other intervertebral disc degeneration, lumbar region | CPT/HCPCS: 87071; 87075; 87205 ==

== ENCOUNTER 2020-10-21 09:07 | Outpatient (RCR) | payer MEDICARE | END 2020-11-12 | LOC: WCC 09:07 | PROVIDERS: ATTEND Family Medicine | DX: L97.811 Non-pressure chronic ulcer of other part of right lower leg limited to breakdown of skin (principal); I70.213 Atherosclerosis of native arteries of extremities with intermittent claudication, bilateral legs; R60.0 Localized edema; I87.2 Venous insufficiency (chronic) (peripheral); I83.93 Asymptomatic varicose veins of bilateral lower extremities; L99 Other disorders of skin and subcutaneous tissue in diseases classified elsewhere; L27.9 Dermatitis due to unspecified substance taken internally; N18.4 Chronic kidney disease, stage 4 (severe); I10 Essential (primary) hypertension; I42.9 Cardiomyopathy, unspecified; J84.9 Interstitial pulmonary disease, unspecified; E78.00 Pure hypercholesterolemia, unspecified; G47.33 Obstructive sleep apnea (adult) (pediatric); J44.9 Chronic obstructive pulmonary disease, unspecified; E55.9 Vitamin D deficiency, unspecified; E66.01 Morbid (severe) obesity due to excess calories; M51.36 Other intervertebral disc degeneration, lumbar region; R26.89 Other abnormalities of gait and mobility ==

== ENCOUNTER 2020-12-09 10:23 | Outpatient (RCR) | payer MEDICARE | END 2020-12-13 | LOC: WCC 10:23 | PROVIDERS: ATTEND Family Medicine | DX: L97.811 Non-pressure chronic ulcer of other part of right lower leg limited to breakdown of skin (principal); L03.115 Cellulitis of right lower limb; R60.0 Localized edema; I87.2 Venous insufficiency (chronic) (peripheral); L99 Other disorders of skin and subcutaneous tissue in diseases classified elsewhere; I70.213 Atherosclerosis of native arteries of extremities with intermittent claudication, bilateral legs; I83.93 Asymptomatic varicose veins of bilateral lower extremities; J44.9 Chronic obstructive pulmonary disease, unspecified; J84.9 Interstitial pulmonary disease, unspecified; I42.9 Cardiomyopathy, unspecified; N18.4 Chronic kidney disease, stage 4 (severe); I10 Essential (primary) hypertension; E78.00 Pure hypercholesterolemia, unspecified; G47.33 Obstructive sleep apnea (adult) (pediatric); M51.36 Other intervertebral disc degeneration, lumbar region; E55.9 Vitamin D deficiency, unspecified; R26.89 Other abnormalities of gait and mobility; E66.01 Morbid (severe) obesity due to excess calories ==

== ENCOUNTER 2020-12-09 13:34 | Inpatient (IN) | payer MEDICARE ==
[~2020-12-09] VITALS: Ht 160 cm; Wt 98.4 kg
[2020-12-09] MEDS ORDERED: ACETAMINOPHEN 325 MG TAB PO PRN (15:30)
[2020-12-09] MEDS ORDERED: ONDANSETRON HCL INJ 2MG/ML 2ML 2 MG/ML VIAL IV PRN (15:30)
[2020-12-09 15:48] VITALS: BP 94/62
[2020-12-09] MEDS ORDERED: DEXTROSE 50% SYRINGE 50 ML IV PRN (16:15)
[2020-12-09] MEDS: INSULIN REGULAR, HUMAN 100 UNIT/1 ML SQ SCH ×2 (16:30→20:17)
[2020-12-09 17:00] LABS: BASOPHILS % 0.2 % (0.0-1.0); EOSINOPHILS % 0.4 % (0.0-6.0); HEMATOCRIT 37.7 % (38.2-49.6); HEMOGLOBIN 11.5 g/dL (14.0-18.0); LYMPHOCYTES # (AUTO) 0.9 (1.0-3.2); MEAN CORPUSCULAR HEMOGLOBIN 26.9 pg (28-32); MEAN CORPUSCULAR HGB CONC 30.5 g/dL (31-35); MEAN CORPUSCULAR VOLUME 88.3 fL (81-99); MONOCYTES # (AUTO) 0.9 (0.2-0.8); MONOCYTES % 9.6 % (4.4-11.3); NEUTROPHILS # (AUTO) 7.7 (2.1-6.9); NEUTROPHILS % 80.2 % (38.7-80.0); PLATELET COUNT 368 x10e3/uL (140-360); RED BLOOD COUNT 4.27 x10e6/uL (4.3-5.7); RED CELL DISTRIBUTION WIDTH 14.2 % (11.7-14.4)
[2020-12-09 17:23] LABS: ALBUMIN 2.5 g/dL (3.5-5.0); ALBUMIN/GLOBULIN RATIO 0.5 (0.8-2.0); ANION GAP 15.8 mmol/L (8-16); CALCIUM 8.9 mg/dL (8.4-10.2); CREATININE, SERUM 1.14 mg/dL (0.72-1.25); POTASSIUM 3.8 mmol/L (3.5-5.1)
[2020-12-09 17:32] VITALS: BP 97/54
[2020-12-09] MEDS ORDERED: SODIUM CHLORIDE 0.9% 250ML 250 ML ONE (17:54)
[2020-12-09] MEDS: Vancomycin IV 1 GM in SODIUM CHLORIDE 0.9% 250ML 250 ML IV SCH (18:21)
[2020-12-09] MEDS: FAMOTIDINE 20 MG TAB PO SCH (18:22)
[2020-12-09] MEDS: CEFEPIME 1 GM in SODIUM CHLORIDE 0.9% 50ML 50 ML IV SCH (19:17)
[2020-12-09] MEDS: HYDROCODONE/APAP 5MG-325MG TAB PO PRN (19:29)
[2020-12-09 20:00] VITALS: BP 97/54
[2020-12-09] MEDS: HYDRALAZINE HCL 25 MG TAB PO SCH (20:17)
[2020-12-09] MEDS: ATORVASTATIN 40 MG TAB PO SCH (20:17)
[2020-12-09 20:19] VITALS: BP 111/52
[2020-12-09] MEDS ORDERED: SODIUM CHLORIDE 0.9% 1000ML 1,000 ML IV SCH (23:15)
[2020-12-10] VITALS (7 sets, daily range): BP systolic 125–159; BP diastolic 51–76
[2020-12-10] MEDS ORDERED: DEXTROSE 50% SYRINGE 50 ML IV PRN (01:00)
[2020-12-10] MEDS ORDERED: DIPHENHYDRAMINE HCL 25 MG CAP PO PRN (01:00)
[2020-12-10] MEDS ORDERED: POTASSIUM CHLORIDE 20 MEQ TAB CR PO PRN (01:00)
[2020-12-10] MEDS ORDERED: DOCUSATE SODIUM 100 MG CAP PO PRN (01:00)
[2020-12-10] MEDS ORDERED: HYDRALAZINE HCL 20 MG/ML VIAL IV PRN (01:00)
[2020-12-10] MEDS ORDERED: ALBUTEROL/IPRATROPIUM 3 ML NEB NEB PRN (01:00)
[2020-12-10] MEDS ORDERED: LIDOCAINE 4% PATCH TP PRN (01:00)
[2020-12-10] MEDS ORDERED: ONDANSETRON HCL INJ 2MG/ML 2ML 2 MG/ML VIAL IV PRN (01:00)
[2020-12-10] MEDS: CEFEPIME 1 GM in SODIUM CHLORIDE 0.9% 50ML 50 ML IV SCH ×3 (01:18→18:30)
[2020-12-10] MEDS: HYDROCODONE/APAP 5MG-325MG TAB PO PRN ×2 (01:18→09:33)
[2020-12-10] MEDS: Vancomycin IV 1 GM in SODIUM CHLORIDE 0.9% 250ML 250 ML IV SCH ×2 (03:48→16:00)
[2020-12-10 06:25] LABS: BASOPHILS % 0.5 % (0.0-1.0); EOSINOPHILS # (AUTO) 0.1 (0.0-0.4); EOSINOPHILS % 0.9 % (0.0-6.0); HEMATOCRIT 34.9 % (38.2-49.6); HEMOGLOBIN 10.7 g/dL (14.0-18.0); LYMPHOCYTES # (AUTO) 1.5 (1.0-3.2); LYMPHOCYTES % 17.1 % (18.0-39.1); MEAN CORPUSCULAR HEMOGLOBIN 27.1 pg (28-32); MEAN CORPUSCULAR HGB CONC 30.7 g/dL (31-35); MEAN CORPUSCULAR VOLUME 88.4 fL (81-99); MONOCYTES # (AUTO) 0.9 (0.2-0.8); PLATELET COUNT 336 x10e3/uL (140-360); RED BLOOD COUNT 3.95 x10e6/uL (4.3-5.7); RED CELL DISTRIBUTION WIDTH 14.2 % (11.7-14.4)
[2020-12-10 06:27] LABS: INR 1.07; PROTHROMBIN TIME 14.8 seconds (11.9-14.5)
[2020-12-10 06:41] LABS: ALBUMIN 2.2 g/dL (3.5-5.0); ALBUMIN/GLOBULIN RATIO 0.5 (0.8-2.0); ANION GAP 12.9 mmol/L (8-16); CALCIUM 8.4 mg/dL (8.4-10.2); CHOL/HDL RATIO 2.5 (3.9-4.7); CREATININE, SERUM 0.93 mg/dL (0.72-1.25); POTASSIUM 3.9 mmol/L (3.5-5.1)
[2020-12-10 07:05] LABS: THYROID STIMULATING HORMONE 11.51 uIU/mL (0.350-4.940)
[2020-12-10] MEDS: PANTOPRAZOLE SOD 40 MG TABEC PO SCH (07:30)
[2020-12-10] MEDS: INSULIN REGULAR, HUMAN 100 UNIT/1 ML SQ SCH ×4 (07:30→21:00)
[2020-12-10] MEDS: FAMOTIDINE 20 MG TAB PO SCH ×2 (07:30→16:30)
[2020-12-10] MEDS: HYDRALAZINE HCL 25 MG TAB PO SCH ×3 (09:00→21:12)
[2020-12-10] MEDS ORDERED: FUROSEMIDE 20 MG TAB PO SCH (09:00)
[2020-12-10] MEDS: AMLODIPINE BESYLATE 5 MG TAB PO SCH (09:00)
[2020-12-10] MEDS: LOSARTAN POTASSIUM 25 MG TAB PO SCH (09:00)
[2020-12-10] MEDS: ASPIRIN 81 MG CHEW TAB PO SCH (09:00)
[2020-12-10] MEDS: ISOSORBIDE MONONITRATE 30 MG TAB CR PO SCH (09:00)
[2020-12-10] MEDS: CLOPIDOGREL BISULFATE 75 MG TAB PO SCH (09:00)
[2020-12-10] MEDS ORDERED: SODIUM CHLORIDE 0.9% 1000ML 0 ML ONE (09:27)
[2020-12-10] MEDS ORDERED: MIDAZOLAM HCL 2 MG/2 ML VIAL ONE ×2 (09:31→13:50)
[2020-12-10] MEDS ORDERED: IOPAMIDOL 300MG/ML 100 ML INFUS..BTL IV ONE (09:31)
[2020-12-10] MEDS: SODIUM CHLORIDE 0.9% 1000ML 1,000 ML IV SCH ×2 (09:31→18:30)
[2020-12-10] MEDS ORDERED: LIDOCAINE HCL 2% LOCAL 20 ML VIAL ONE (09:31)
[2020-12-10] MEDS ORDERED: FENTANYL CITRATE/PF 100MCG/2 ML INJ ONE ×2 (09:31→13:50)
[2020-12-10] MEDS ORDERED: HEPARIN SOD/SOD CHLORIDE 0 ML ONE (09:31)
[2020-12-10] MEDS ORDERED: SODIUM CHLORIDE 0.9% 1000ML 1,000 ML ONE (09:31)
[2020-12-10] MEDS ORDERED: GENTAMICIN SULFATE 40 MG/ML 2 ML VIAL ONE (11:33)
[2020-12-10] MEDS ORDERED: LIDOCAINE 1% W/EPINEPHRINE 20 ML VIAL ONE (11:34)
[2020-12-10] MEDS ORDERED: MUPIROCIN 2% OINT 22 GM TUBE ONE (11:34)
[2020-12-10] MEDS ORDERED: Morphine 2mg Syringe 2 MG/ML SYR IV PRN (11:45)
[2020-12-10] MEDS: HYDROCODONE/APAP 10MG-325MG TAB PO PRN ×2 (12:45→21:14)
[2020-12-10] MEDS ORDERED: SEVOFLURANE INHAL SOLN 250 ML PEN BTL ONE (12:56)
[2020-12-10] MEDS ORDERED: LIDOCAINE HCL 2% LOCAL INJ 5 ML SDV VIAL INJ ONE (12:56)
[2020-12-10] MEDS ORDERED: POVIDONE IODINE 0.05% 0.05 % ML PO ONE (12:56)
[2020-12-10] MEDS ORDERED: PROPOFOL IV EMULSION 10 MG/ML 20 ML VIAL ONE (12:56)
[2020-12-10] MEDS ORDERED: ONDANSETRON HCL INJ 2MG/ML 2ML 2 MG/ML VIAL ONE (12:56)
[2020-12-10] MEDS ORDERED: ENOXAPARIN SOD INJ 40 MG/0.4 ML SYR SC SCH (17:00)
[2020-12-10] MEDS: ATORVASTATIN 40 MG TAB PO SCH (21:12)
[2020-12-11] VITALS (12 sets, daily range): BP systolic 107–150; BP diastolic 54–67
[2020-12-11] MEDS: HYDROCODONE/APAP 10MG-325MG TAB PO PRN (02:23)
[2020-12-11] MEDS: CEFEPIME 1 GM in SODIUM CHLORIDE 0.9% 50ML 50 ML IV SCH ×3 (02:23→16:59)
[2020-12-11 05:02] LABS: BASOPHILS % 0.4 % (0.0-1.0); EOSINOPHILS # (AUTO) 0.1 (0.0-0.4); EOSINOPHILS % 0.9 % (0.0-6.0); HEMATOCRIT 36.3 % (38.2-49.6); HEMOGLOBIN 10.7 g/dL (14.0-18.0); LYMPHOCYTES % 11.3 % (18.0-39.1); MEAN CORPUSCULAR HEMOGLOBIN 27.2 pg (28-32); MEAN CORPUSCULAR HGB CONC 29.5 g/dL (31-35); MEAN CORPUSCULAR VOLUME 92.1 fL (81-99); NEUTROPHILS # (AUTO) 6.9 (2.1-6.9); NEUTROPHILS % 75.9 % (38.7-80.0); PLATELET COUNT 314 x10e3/uL (140-360); RED BLOOD COUNT 3.94 x10e6/uL (4.3-5.7); RED CELL DISTRIBUTION WIDTH 14.1 % (11.7-14.4)
[2020-12-11] MEDS: Vancomycin IV 1 GM in SODIUM CHLORIDE 0.9% 250ML 250 ML IV SCH ×2 (05:43→16:59)
[2020-12-11 05:51] LABS: THYROID STIMULATING HORMONE 10.27 uIU/mL (0.350-4.940)
[2020-12-11] MEDS: LEVOTHYROXINE SODIUM 75 MCG TAB PO SCH (06:00)
[2020-12-11 06:40] LABS: CALCIUM 8.1 mg/dL (8.4-10.2); CREATININE, SERUM 0.96 mg/dL (0.72-1.25); MAGNESIUM 2.1 MG/DL (1.3-2.1)
[2020-12-11] MEDS: INSULIN REGULAR, HUMAN 100 UNIT/1 ML SQ SCH ×4 (07:30→21:00)
[2020-12-11] MEDS ORDERED: HEPARIN SOD (PORCINE) 1000 UNIT/ML 30ML ONE (08:02)
[2020-12-11] MEDS ORDERED: HEPARIN SOD/SOD CHLORIDE 2,000 ML ONE (08:03)
[2020-12-11] MEDS ORDERED: LIDOCAINE HCL 2% LOCAL 20 ML VIAL ONE (08:03)
[2020-12-11] MEDS ORDERED: FENTANYL CITRATE/PF 100MCG/2 ML INJ ONE (08:03)
[2020-12-11] MEDS ORDERED: MIDAZOLAM HCL 2 MG/2 ML VIAL ONE ×2 (08:03→11:03)
[2020-12-11] MEDS ORDERED: IOPAMIDOL 300MG/ML 100 ML INFUS..BTL IV ONE (08:04)
[2020-12-11] MEDS ORDERED: NITROGLYCERIN/D5W 200 MCG/ML 250 ML ONE (08:04)
[2020-12-11] MEDS ORDERED: SODIUM CHLORIDE 0.9% 1000ML 0 ML ONE (08:04)
[2020-12-11] MEDS: LOSARTAN POTASSIUM 25 MG TAB PO SCH (09:00)
[2020-12-11] MEDS: AMLODIPINE BESYLATE 5 MG TAB PO SCH (09:00)
[2020-12-11] MEDS: ISOSORBIDE MONONITRATE 30 MG TAB CR PO SCH (09:00)
[2020-12-11] MEDS: HYDRALAZINE HCL 25 MG TAB PO SCH ×3 (09:00→21:10)
[2020-12-11] MEDS ORDERED: SODIUM CHLORIDE 0.9% 1000ML 1,000 ML ONE (10:06)
[2020-12-11] MEDS ORDERED: VERAPAMIL HCL 2.5 MG/ML 2 ML VIAL ONE (10:06)
[2020-12-11] MEDS: CLOPIDOGREL BISULFATE 75 MG TAB PO SCH (10:14)
[2020-12-11] MEDS: FAMOTIDINE 20 MG TAB PO SCH ×2 (10:14→16:59)
[2020-12-11] MEDS: ASPIRIN 81 MG CHEW TAB PO SCH (10:14)
[2020-12-11] MEDS: PANTOPRAZOLE SOD 40 MG TABEC PO SCH (10:14)
[2020-12-11] MEDS: SODIUM CHLORIDE 0.9% 1000ML 1,000 ML IV SCH (11:00)
[2020-12-11] MEDS ORDERED: ONDANSETRON HCL INJ 2MG/ML 2ML 2 MG/ML VIAL IV PRN (12:00)
[2020-12-11] MEDS ORDERED: SODIUM CHLORIDE 0.9% 1000ML 1,000 ML IV SCH (12:00)
[2020-12-11] MEDS ORDERED: Vancomycin IV 1 GM VIAL ONE (17:43)
[2020-12-11] MEDS: ATORVASTATIN 40 MG TAB PO SCH (21:10)
[2020-12-11] MEDS: HYDROCODONE/APAP 5MG-325MG TAB PO PRN (21:12)
[2020-12-12] VITALS: BP 104/61
[2020-12-12] MEDS: CEFEPIME 1 GM in SODIUM CHLORIDE 0.9% 50ML 50 ML IV SCH ×3 (03:03→18:40)
[2020-12-12 04:00] VITALS: BP 128/63
[2020-12-12] MEDS: LEVOTHYROXINE SODIUM 75 MCG TAB PO SCH (05:57)
[2020-12-12] MEDS: Vancomycin IV 1 GM in SODIUM CHLORIDE 0.9% 250ML 250 ML IV SCH ×2 (05:57→16:13)
[2020-12-12 06:01] LABS: BASOPHILS % 0.4 % (0.0-1.0); EOSINOPHILS # (AUTO) 0.1 (0.0-0.4); EOSINOPHILS % 0.9 % (0.0-6.0); HEMATOCRIT 34.2 % (38.2-49.6); HEMOGLOBIN 10.5 g/dL (14.0-18.0); LYMPHOCYTES # (AUTO) 0.9 (1.0-3.2); LYMPHOCYTES % 8.9 % (18.0-39.1); MEAN CORPUSCULAR HEMOGLOBIN 27.1 pg (28-32); MEAN CORPUSCULAR HGB CONC 30.7 g/dL (31-35); MEAN CORPUSCULAR VOLUME 88.1 fL (81-99); MONOCYTES % 9.2 % (4.4-11.3); NEUTROPHILS # (AUTO) 8.3 (2.1-6.9); NEUTROPHILS % 79.7 % (38.7-80.0); PLATELET COUNT 302 x10e3/uL (140-360); RED BLOOD COUNT 3.88 x10e6/uL (4.3-5.7); RED CELL DISTRIBUTION WIDTH 14.3 % (11.7-14.4)
[2020-12-12 06:20] LABS: ALBUMIN 2.2 g/dL (3.5-5.0); ALBUMIN/GLOBULIN RATIO 0.5 (0.8-2.0); ANION GAP 12.9 mmol/L (8-16); CALCIUM 8.2 mg/dL (8.4-10.2); CREATININE, SERUM 0.83 mg/dL (0.72-1.25); POTASSIUM 3.9 mmol/L (3.5-5.1)
[2020-12-12] MEDS: INSULIN REGULAR, HUMAN 100 UNIT/1 ML SQ SCH ×4 (07:30→21:00)
[2020-12-12 08:05] VITALS: BP 139/64
[2020-12-12] MEDS: FAMOTIDINE 20 MG TAB PO SCH ×2 (09:34→16:36)
[2020-12-12] MEDS: PANTOPRAZOLE SOD 40 MG TABEC PO SCH (09:34)
[2020-12-12] MEDS: ASPIRIN 81 MG CHEW TAB PO SCH (09:35)
[2020-12-12] MEDS: HYDRALAZINE HCL 25 MG TAB PO SCH ×3 (09:35→20:00)
[2020-12-12] MEDS: AMLODIPINE BESYLATE 5 MG TAB PO SCH (09:35)
[2020-12-12] MEDS: CLOPIDOGREL BISULFATE 75 MG TAB PO SCH (09:35)
[2020-12-12] MEDS: ISOSORBIDE MONONITRATE 30 MG TAB CR PO SCH (09:35)
[2020-12-12] MEDS: LOSARTAN POTASSIUM 25 MG TAB PO SCH (09:35)
[2020-12-12 20:00] VITALS: BP 164/68
[2020-12-12] MEDS: HYDROCODONE/APAP 5MG-325MG TAB PO PRN (20:00)
[2020-12-12] MEDS: ATORVASTATIN 40 MG TAB PO SCH (20:00)
[2020-12-12 21:00] VITALS: BP 164/68
[2020-12-12] MEDS: Morphine 4mg Syringe 4 MG/ML INJ IV PRN ×2 (21:31→23:29)
[2020-12-13] VITALS: BP 125/72
[2020-12-13] MEDS: CEFEPIME 1 GM in SODIUM CHLORIDE 0.9% 50ML 50 ML IV SCH ×3 (02:02→18:01)
[2020-12-13 04:00] VITALS: BP 150/75
[2020-12-13 05:45] LABS: BASOPHILS % 0.3 % (0.0-1.0); EOSINOPHILS # (AUTO) 0.3 (0.0-0.4); EOSINOPHILS % 3.1 % (0.0-6.0); HEMATOCRIT 32.5 % (38.2-49.6); HEMOGLOBIN 10.4 g/dL (14.0-18.0); LYMPHOCYTES # (AUTO) 1.3 (1.0-3.2); LYMPHOCYTES % 13.9 % (18.0-39.1); MEAN CORPUSCULAR HEMOGLOBIN 27.4 pg (28-32); MEAN CORPUSCULAR VOLUME 85.8 fL (81-99); MONOCYTES # (AUTO) 0.9 (0.2-0.8); MONOCYTES % 9.3 % (4.4-11.3); NEUTROPHILS % 72.6 % (38.7-80.0); PLATELET COUNT 304 x10e3/uL (140-360); RED BLOOD COUNT 3.79 x10e6/uL (4.3-5.7)
[2020-12-13 05:56] LABS: ANION GAP 13.6 mmol/L (8-16); CALCIUM 8.3 mg/dL (8.4-10.2); CREATININE, SERUM 0.82 mg/dL (0.72-1.25); POTASSIUM 3.6 mmol/L (3.5-5.1)
[2020-12-13] MEDS: LEVOTHYROXINE SODIUM 75 MCG TAB PO SCH (06:00)
[2020-12-13] MEDS: INSULIN REGULAR, HUMAN 100 UNIT/1 ML SQ SCH ×4 (07:30→20:35)
[2020-12-13 08:00] VITALS: BP 157/57
[2020-12-13] MEDS: PANTOPRAZOLE SOD 40 MG TABEC PO SCH (08:00)
[2020-12-13] MEDS: FAMOTIDINE 20 MG TAB PO SCH ×2 (08:00→16:39)
[2020-12-13] MEDS: HYDRALAZINE HCL 25 MG TAB PO SCH ×3 (09:10→20:35)
[2020-12-13] MEDS: ASPIRIN 81 MG CHEW TAB PO SCH (09:10)
[2020-12-13] MEDS: LOSARTAN POTASSIUM 25 MG TAB PO SCH (09:10)
[2020-12-13] MEDS: CLOPIDOGREL BISULFATE 75 MG TAB PO SCH (09:10)
[2020-12-13] MEDS: ISOSORBIDE MONONITRATE 30 MG TAB CR PO SCH (09:10)
[2020-12-13] MEDS: AMLODIPINE BESYLATE 5 MG TAB PO SCH (09:10)
[2020-12-13] MEDS: Vancomycin IV 1 GM in SODIUM CHLORIDE 0.9% 250ML 250 ML IV SCH (09:30)
[2020-12-13] MEDS: HYDROCODONE/APAP 5MG-325MG TAB PO PRN (17:15)
[2020-12-13 20:00] VITALS: BP 136/82
[2020-12-13] MEDS: ATORVASTATIN 40 MG TAB PO SCH (20:35)
[2020-12-13 21:00] VITALS: BP 136/82
[2020-12-14] VITALS (9 sets, daily range): BP systolic 110–157; BP diastolic 61–94
[2020-12-14] MEDS: CEFEPIME 1 GM in SODIUM CHLORIDE 0.9% 50ML 50 ML IV SCH ×3 (02:03→17:17)
[2020-12-14] MEDS: LEVOTHYROXINE SODIUM 75 MCG TAB PO SCH (06:24)
[2020-12-14] MEDS: INSULIN REGULAR, HUMAN 100 UNIT/1 ML SQ SCH ×4 (07:30→21:00)
[2020-12-14] MEDS: FAMOTIDINE 20 MG TAB PO SCH ×2 (07:53→15:41)
[2020-12-14] MEDS: PANTOPRAZOLE SOD 40 MG TABEC PO SCH (07:53)
[2020-12-14] MEDS: Vancomycin IV 1 GM in SODIUM CHLORIDE 0.9% 250ML 250 ML IV SCH (07:53)
[2020-12-14] MEDS: LOSARTAN POTASSIUM 25 MG TAB PO SCH ×2 (07:54→17:17)
[2020-12-14] MEDS: ASPIRIN 81 MG CHEW TAB PO SCH (07:54)
[2020-12-14] MEDS: HYDRALAZINE HCL 25 MG TAB PO SCH ×3 (07:54→22:09)
[2020-12-14] MEDS: CLOPIDOGREL BISULFATE 75 MG TAB PO SCH (07:55)
[2020-12-14] MEDS: ISOSORBIDE MONONITRATE 30 MG TAB CR PO SCH (07:55)
[2020-12-14] MEDS: AMLODIPINE BESYLATE 5 MG TAB PO SCH (07:55)
[2020-12-14] MEDS: ENOXAPARIN SOD INJ 40 MG/0.4 ML SYR SC SCH (17:17)
[2020-12-14] MEDS: ATORVASTATIN 40 MG TAB PO SCH (22:12)
[2020-12-14] MEDS: Morphine 4mg Syringe 4 MG/ML INJ IV PRN (22:59)
[2020-12-15] VITALS (8 sets, daily range): BP systolic 128–141; BP diastolic 56–81
[2020-12-15] MEDS: CEFEPIME 1 GM in SODIUM CHLORIDE 0.9% 50ML 50 ML IV SCH ×3 (02:24→16:59)
[2020-12-15 06:20] LABS: BASOPHILS % 0.5 % (0.0-1.0); EOSINOPHILS # (AUTO) 0.2 (0.0-0.4); EOSINOPHILS % 2.4 % (0.0-6.0); HEMATOCRIT 34.3 % (38.2-49.6); HEMOGLOBIN 10.7 g/dL (14.0-18.0); LYMPHOCYTES # (AUTO) 1.3 (1.0-3.2); LYMPHOCYTES % 15.6 % (18.0-39.1); MEAN CORPUSCULAR HGB CONC 31.2 g/dL (31-35); MEAN CORPUSCULAR VOLUME 86.6 fL (81-99); MONOCYTES # (AUTO) 0.8 (0.2-0.8); MONOCYTES % 9.6 % (4.4-11.3); NEUTROPHILS # (AUTO) 5.9 (2.1-6.9); NEUTROPHILS % 70.9 % (38.7-80.0); PLATELET COUNT 310 x10e3/uL (140-360); RED BLOOD COUNT 3.96 x10e6/uL (4.3-5.7); RED CELL DISTRIBUTION WIDTH 13.8 % (11.7-14.4)
[2020-12-15] MEDS: LEVOTHYROXINE SODIUM 75 MCG TAB PO SCH (06:44)
[2020-12-15 07:01] LABS: ANION GAP 12.2 mmol/L (8-16); CREATININE, SERUM 0.81 mg/dL (0.72-1.25); POTASSIUM 3.2 mmol/L (3.5-5.1)
[2020-12-15] MEDS: INSULIN REGULAR, HUMAN 100 UNIT/1 ML SQ SCH ×4 (07:10→20:56)
[2020-12-15] MEDS: FAMOTIDINE 20 MG TAB PO SCH ×2 (07:41→16:01)
[2020-12-15] MEDS: PANTOPRAZOLE SOD 40 MG TABEC PO SCH (07:41)
[2020-12-15] MEDS: Vancomycin IV 1 GM in SODIUM CHLORIDE 0.9% 250ML 250 ML IV SCH (07:41)
[2020-12-15] MEDS: LOSARTAN POTASSIUM 25 MG TAB PO SCH ×2 (07:42→16:59)
[2020-12-15] MEDS: HYDRALAZINE HCL 25 MG TAB PO SCH ×3 (07:42→20:53)
[2020-12-15] MEDS: ASPIRIN 81 MG CHEW TAB PO SCH (07:42)
[2020-12-15] MEDS: CLOPIDOGREL BISULFATE 75 MG TAB PO SCH (07:43)
[2020-12-15] MEDS: ISOSORBIDE MONONITRATE 30 MG TAB CR PO SCH (07:43)
[2020-12-15] MEDS: AMLODIPINE BESYLATE 5 MG TAB PO SCH (07:43)
[2020-12-15] MEDS ORDERED: ONDANSETRON HCL 4 MG ORAL DISINTEGRATING TAB PO PRN (10:30)
[2020-12-15] MEDS: Morphine 4mg Syringe 4 MG/ML INJ IV PRN (10:49)
[2020-12-15] MEDS ORDERED: Morphine 4mg Syringe 4 MG/ML INJ IV PRN (11:00)
[2020-12-15] MEDS: ENOXAPARIN SOD INJ 40 MG/0.4 ML SYR SC SCH (16:59)
[2020-12-15] MEDS: ATORVASTATIN 40 MG TAB PO SCH (20:53)
[2020-12-16] VITALS (8 sets, daily range): BP systolic 104–154; BP diastolic 54–90
[2020-12-16] MEDS: CEFEPIME 1 GM in SODIUM CHLORIDE 0.9% 50ML 50 ML IV SCH ×3 (01:29→18:51)
[2020-12-16] MEDS: LEVOTHYROXINE SODIUM 75 MCG TAB PO SCH (05:57)
[2020-12-16] MEDS: INSULIN REGULAR, HUMAN 100 UNIT/1 ML SQ SCH ×4 (07:30→20:14)
[2020-12-16] MEDS: Vancomycin IV 1 GM in SODIUM CHLORIDE 0.9% 250ML 250 ML IV SCH (08:29)
[2020-12-16] MEDS: FAMOTIDINE 20 MG TAB PO SCH ×2 (08:29→17:17)
[2020-12-16] MEDS: PANTOPRAZOLE SOD 40 MG TABEC PO SCH (08:29)
[2020-12-16] MEDS: ASPIRIN 81 MG CHEW TAB PO SCH (08:31)
[2020-12-16] MEDS: LOSARTAN POTASSIUM 25 MG TAB PO SCH ×2 (08:31→17:17)
[2020-12-16] MEDS: HYDRALAZINE HCL 25 MG TAB PO SCH ×3 (08:31→20:16)
[2020-12-16] MEDS: ISOSORBIDE MONONITRATE 30 MG TAB CR PO SCH (08:31)
[2020-12-16] MEDS: CLOPIDOGREL BISULFATE 75 MG TAB PO SCH (08:32)
[2020-12-16] MEDS: AMLODIPINE BESYLATE 5 MG TAB PO SCH (08:32)
[2020-12-16] MEDS: ENOXAPARIN SOD INJ 40 MG/0.4 ML SYR SC SCH (17:17)
[2020-12-16] MEDS: COLLAGENASE OINTMENT 30 GM TUBE TP SCH (17:17)
[2020-12-16] MEDS: ATORVASTATIN 40 MG TAB PO SCH (20:14)
[2020-12-16] MEDS: HYDROCODONE/APAP 5MG-325MG TAB PO PRN (21:24)
[2020-12-17 00:21] VITALS: BP 134/56
[2020-12-17] MEDS: CEFEPIME 1 GM in SODIUM CHLORIDE 0.9% 50ML 50 ML IV SCH ×2 (02:08→10:43)
[2020-12-17 04:32] VITALS: BP 148/73
[2020-12-17] MEDS: LEVOTHYROXINE SODIUM 75 MCG TAB PO SCH (05:41)
[2020-12-17] MEDS: INSULIN REGULAR, HUMAN 100 UNIT/1 ML SQ SCH ×2 (07:30→11:30)
[2020-12-17 08:18] VITALS: BP 148/73
[2020-12-17 08:26] VITALS: BP 146/65
[2020-12-17] MEDS ORDERED: SODIUM CHLORIDE 0.9% 50ML 50 ML ONE (08:39)
[2020-12-17] MEDS ORDERED: Vancomycin IV 1 GM VIAL ONE (08:40)
[2020-12-17] MEDS: Vancomycin IV 1 GM in SODIUM CHLORIDE 0.9% 250ML 250 ML IV SCH (08:43)
[2020-12-17] MEDS: COLLAGENASE OINTMENT 30 GM TUBE TP SCH (08:43)
[2020-12-17] MEDS: FAMOTIDINE 20 MG TAB PO SCH (08:43)
[2020-12-17] MEDS: PANTOPRAZOLE SOD 40 MG TABEC PO SCH (08:43)
[2020-12-17] MEDS: AMLODIPINE BESYLATE 5 MG TAB PO SCH (08:44)
[2020-12-17] MEDS: HYDRALAZINE HCL 25 MG TAB PO SCH (08:44)
[2020-12-17] MEDS: CLOPIDOGREL BISULFATE 75 MG TAB PO SCH (08:44)
[2020-12-17] MEDS: ISOSORBIDE MONONITRATE 30 MG TAB CR PO SCH (08:44)
[2020-12-17] MEDS: ASPIRIN 81 MG CHEW TAB PO SCH (08:44)
[2020-12-17] MEDS: LOSARTAN POTASSIUM 25 MG TAB PO SCH (08:44)
[2020-12-17 11:40] VITALS: BP 149/91
[2020-12-17 15:55] VITALS: BP 149/91
== END 2020-12-17 15:27 | DRG 253 ==
LOC: MED/SURG3 14:27
PROVIDERS: ADMIT Internal Medicine; ATTEND Internal Medicine
PROC: 0KBS0ZZ Excision of Right Lower Leg Muscle, Open Approach (ICD-10-PCS; 2020-12-10)
PROC: 02HV33Z Insertion of Infusion Device into Superior Vena Cava, Percutaneous Approach (ICD-10-PCS; principal; 2020-12-10 11:00)
PROC: 047K3EZ Dilation of Right Femoral Artery with Two Intraluminal Devices, Percutaneous Approach (ICD-10-PCS; 2020-12-11)
PROC: B41D1ZZ Fluoroscopy of Aorta and Bilateral Lower Extremity Arteries using Low Osmolar Contrast (ICD-10-PCS; 2020-12-11)
DX: I70.261 Atherosclerosis of native arteries of extremities with gangrene, right leg (principal); L03.115 Cellulitis of right lower limb; L97.813 Non-pressure chronic ulcer of other part of right lower leg with necrosis of muscle; I70.92 Chronic total occlusion of artery of the extremities; T82.856A Stenosis of peripheral vascular stent, initial encounter; I96 Gangrene, not elsewhere classified; E11.9 Type 2 diabetes mellitus without complications; I10 Essential (primary) hypertension; E03.9 Hypothyroidism, unspecified; E66.01 Morbid (severe) obesity due to excess calories; Z20.822 Contact with and (suspected) exposure to COVID-19; Z68.38 Body mass index [BMI] 38.0-38.9, adult; E78.00 Pure hypercholesterolemia, unspecified; I25.10 Atherosclerotic heart disease of native coronary artery without angina pectoris; J44.9 Chronic obstructive pulmonary disease, unspecified; F17.200 Nicotine dependence, unspecified, uncomplicated; Z95.820 Peripheral vascular angioplasty status with implants and grafts; D64.9 Anemia, unspecified; R79.89 Other specified abnormal findings of blood chemistry; Z91.19 Patient's noncompliance with other medical treatment and regimen
CPT/HCPCS: 36247; 36415; 37221; 37226; 75625; 75710; 76937; 80048; 80053; 80061; 80202; 82948; 83036; 83605; 83735; 84443; 85025; 85610; 93306; 93925; 94799; 96361; 97139; 99152; 99153; 99251; C1769; C1874; C1887; C1894; J0692; J1580; J1644; J1650; J1817; J2001; J2250; J2270; J2405; J3010; J3370; J7030; J7050; Q9967; U0002

== ENCOUNTER 2020-12-25 09:05 | Outpatient (RCR) | payer MEDICARE | END 2021-01-12 | LOC: WCC 09:05 | PROVIDERS: ATTEND Family Medicine | DX: L89.612 Pressure ulcer of right heel, stage 2 (principal); L97.811 Non-pressure chronic ulcer of other part of right lower leg limited to breakdown of skin; L03.115 Cellulitis of right lower limb; I70.213 Atherosclerosis of native arteries of extremities with intermittent claudication, bilateral legs; I83.93 Asymptomatic varicose veins of bilateral lower extremities; I87.2 Venous insufficiency (chronic) (peripheral); R60.0 Localized edema; L99 Other disorders of skin and subcutaneous tissue in diseases classified elsewhere; N18.4 Chronic kidney disease, stage 4 (severe); I10 Essential (primary) hypertension; J84.9 Interstitial pulmonary disease, unspecified; I42.9 Cardiomyopathy, unspecified; G47.33 Obstructive sleep apnea (adult) (pediatric); J44.9 Chronic obstructive pulmonary disease, unspecified; E55.9 Vitamin D deficiency, unspecified; E66.01 Morbid (severe) obesity due to excess calories; E78.00 Pure hypercholesterolemia, unspecified; M51.36 Other intervertebral disc degeneration, lumbar region; R26.89 Other abnormalities of gait and mobility ==

== ENCOUNTER 2021-02-10 13:53 | Outpatient (RCR) | payer MEDICARE ==
[2021-01-27 15:30] LABS: BASOPHILS # (AUTO) 0.1 (0.0-0.1); BASOPHILS % 0.5 % (0.0-1.0); EOSINOPHILS # (AUTO) 0.2 (0.0-0.4); EOSINOPHILS % 1.4 % (0.0-6.0); HEMATOCRIT 44.8 % (38.2-49.6); HEMOGLOBIN 13.3 g/dL (14.0-18.0); LYMPHOCYTES # (AUTO) 1.6 (1.0-3.2); LYMPHOCYTES % 14.2 % (18.0-39.1); MEAN CORPUSCULAR HEMOGLOBIN 26.4 pg (28-32); MEAN CORPUSCULAR HGB CONC 29.7 g/dL (31-35); MEAN CORPUSCULAR VOLUME 89.1 fL (81-99); MONOCYTES # (AUTO) 1.4 (0.2-0.8); MONOCYTES % 13.1 % (4.4-11.3); NEUTROPHILS # (AUTO) 7.6 (2.1-6.9); NEUTROPHILS % 69.1 % (38.7-80.0); PLATELET COUNT 382 x10e3/uL (140-360); RED BLOOD COUNT 5.03 x10e6/uL (4.3-5.7); RED CELL DISTRIBUTION WIDTH 15.4 % (11.7-14.4)
[2021-01-27 15:55] LABS: ALBUMIN 3.1 g/dL (3.5-5.0); ALBUMIN/GLOBULIN RATIO 0.8 (0.8-2.0); ANION GAP 16.7 mmol/L (8-16); CALCIUM 8.8 mg/dL (8.4-10.2); CREATININE, SERUM 1.31 mg/dL (0.72-1.25); POTASSIUM 4.7 mmol/L (3.5-5.1)
[~2021-02-10 13:53] MED LIST: LIDOCAINE VISC 2% SOLN 15 ML UDC ONE; MINERAL OIL/PETROLAT/GLYCERI 6OZ BTL ONE; MUPIROCIN 2% OINT 22 GM TUBE ONE
== END 2021-02-12 ==
LOC: WCC 13:53
PROVIDERS: ATTEND Internal Medicine Infectious Disease
DX: L89.612 Pressure ulcer of right heel, stage 2 (principal); L97.811 Non-pressure chronic ulcer of other part of right lower leg limited to breakdown of skin; I70.213 Atherosclerosis of native arteries of extremities with intermittent claudication, bilateral legs; L03.115 Cellulitis of right lower limb; I87.2 Venous insufficiency (chronic) (peripheral); L99 Other disorders of skin and subcutaneous tissue in diseases classified elsewhere; R60.0 Localized edema; I83.93 Asymptomatic varicose veins of bilateral lower extremities; N18.4 Chronic kidney disease, stage 4 (severe); I10 Essential (primary) hypertension; I42.9 Cardiomyopathy, unspecified; G47.33 Obstructive sleep apnea (adult) (pediatric); E55.9 Vitamin D deficiency, unspecified; E66.01 Morbid (severe) obesity due to excess calories; E78.00 Pure hypercholesterolemia, unspecified; J44.9 Chronic obstructive pulmonary disease, unspecified; J84.9 Interstitial pulmonary disease, unspecified; M51.36 Other intervertebral disc degeneration, lumbar region; R26.89 Other abnormalities of gait and mobility
CPT/HCPCS: 36415; 80053; 83036; 84134; 85025; 87071; 87075; 87186; 87205

== ENCOUNTER → 2021-03-09 | Outpatient (CLI) | payer MEDICARE | LOC: MRI 08:59 | PROVIDERS: ATTEND Family Medicine | DX: I87.311 Chronic venous hypertension (idiopathic) with ulcer of right lower extremity (principal); L97.811 Non-pressure chronic ulcer of other part of right lower leg limited to breakdown of skin ==

== ENCOUNTER 2021-03-10 09:26 | Outpatient (RCR) | payer MEDICARE ==
[~2021-03-10 09:26] MED LIST changes: +COLLAGENASE OINTMENT 30 GM TUBE ONE; -MINERAL OIL/PETROLAT/GLYCERI 6OZ BTL ONE
[2021-03-10] MEDS ORDERED: MUPIROCIN 2% OINT 22 GM TUBE ONE (12:36)
[2021-03-10] MEDS ORDERED: COLLAGENASE OINTMENT 30 GM TUBE ONE (12:36)
== END 2021-03-15 ==
LOC: WCC 09:26
PROVIDERS: ATTEND Family Medicine
DX: M86.18 Other acute osteomyelitis, other site (principal); L03.115 Cellulitis of right lower limb; L97.811 Non-pressure chronic ulcer of other part of right lower leg limited to breakdown of skin; I70.213 Atherosclerosis of native arteries of extremities with intermittent claudication, bilateral legs; I87.2 Venous insufficiency (chronic) (peripheral); I83.93 Asymptomatic varicose veins of bilateral lower extremities; L99 Other disorders of skin and subcutaneous tissue in diseases classified elsewhere; R60.0 Localized edema; I10 Essential (primary) hypertension; J84.9 Interstitial pulmonary disease, unspecified; J44.9 Chronic obstructive pulmonary disease, unspecified; I42.9 Cardiomyopathy, unspecified; E78.00 Pure hypercholesterolemia, unspecified; G47.33 Obstructive sleep apnea (adult) (pediatric); M51.36 Other intervertebral disc degeneration, lumbar region; B96.5 Pseudomonas (aeruginosa) (mallei) (pseudomallei) as the cause of diseases classified elsewhere; B96.89 Other specified bacterial agents as the cause of diseases classified elsewhere; Z16.21 Resistance to vancomycin; E55.9 Vitamin D deficiency, unspecified; E66.01 Morbid (severe) obesity due to excess calories; N18.4 Chronic kidney disease, stage 4 (severe); R26.89 Other abnormalities of gait and mobility

== ENCOUNTER 2021-04-07 14:21 | Outpatient (RCR) | payer MEDICARE ==
[~2021-04-07 14:21] MED LIST changes: +CLOTRIMAZOLE/BETAMETHASONE 45 GM CR TP ONE; +MINERAL OIL/PETROLAT/GLYCERI 6OZ BTL ONE; +TRIAMCINOLONE ACET 0.1% CREAM 15 GM TUBE ONE
== END 2021-04-12 ==
LOC: WCC 14:21
PROVIDERS: ATTEND Plastic Surgery
DX: L03.115 Cellulitis of right lower limb (principal); M86.18 Other acute osteomyelitis, other site; L97.811 Non-pressure chronic ulcer of other part of right lower leg limited to breakdown of skin; I87.2 Venous insufficiency (chronic) (peripheral); I70.213 Atherosclerosis of native arteries of extremities with intermittent claudication, bilateral legs; I83.93 Asymptomatic varicose veins of bilateral lower extremities; L99 Other disorders of skin and subcutaneous tissue in diseases classified elsewhere; R60.0 Localized edema; N18.4 Chronic kidney disease, stage 4 (severe); I10 Essential (primary) hypertension; I42.9 Cardiomyopathy, unspecified; J84.9 Interstitial pulmonary disease, unspecified; J44.9 Chronic obstructive pulmonary disease, unspecified; E78.00 Pure hypercholesterolemia, unspecified; B96.5 Pseudomonas (aeruginosa) (mallei) (pseudomallei) as the cause of diseases classified elsewhere; B96.89 Other specified bacterial agents as the cause of diseases classified elsewhere; Z16.21 Resistance to vancomycin; E66.01 Morbid (severe) obesity due to excess calories; G47.33 Obstructive sleep apnea (adult) (pediatric); M51.36 Other intervertebral disc degeneration, lumbar region; R26.89 Other abnormalities of gait and mobility

== ENCOUNTER → 2021-06-21 | Outpatient (CLI) | payer MEDICARE | LOC: MRI 15:05 | PROVIDERS: ATTEND Family Medicine | DX: I87.311 Chronic venous hypertension (idiopathic) with ulcer of right lower extremity (principal); L97.811 Non-pressure chronic ulcer of other part of right lower leg limited to breakdown of skin ==

== ENCOUNTER → 2021-07-06 | Outpatient (CLI) | payer MEDICARE ==
[2021-07-06 10:28] LABS: ABG PCO2 45 mmHg (35-45); ABG PH 7.39 (7.35-7.45)
[2021-07-06 10:29] LABS: ABG HCO3 27 mmol/L (22-26); ABG PO2 88 mmHg (80-105); ABG TCO2 29
== END ==
LOC: RESP 09:09
PROVIDERS: ATTEND Family Medicine
DX: Z01.810 Encounter for preprocedural cardiovascular examination (principal); Z01.811 Encounter for preprocedural respiratory examination; M86.68 Other chronic osteomyelitis, other site
CPT/HCPCS: 36415; 71046; 82805; 93005; 93306

== ENCOUNTER → 2021-07-06 | Outpatient (CLI) | payer MEDICARE | LOC: NM 09:04 | PROVIDERS: ATTEND Internal Medicine Infectious Disease | DX: I87.331 Chronic venous hypertension (idiopathic) with ulcer and inflammation of right lower extremity (principal) | CPT/HCPCS: 78306; A9503 ==

== ENCOUNTER 2021-07-07 11:20 | Outpatient (RCR) | payer MEDICARE ==
[~2021-07-07 11:20] MED LIST changes: -CLOTRIMAZOLE/BETAMETHASONE 45 GM CR TP ONE; -TRIAMCINOLONE ACET 0.1% CREAM 15 GM TUBE ONE
[2021-07-07] MEDS ORDERED: LIDOCAINE VISC 2% SOLN 15 ML UDC ONE (16:38)
[2021-07-07] MEDS ORDERED: MINERAL OIL/PETROLAT/GLYCERI 6OZ BTL ONE (16:38)
== END 2021-07-13 ==
LOC: WCC 11:20
PROVIDERS: ATTEND Family Medicine
DX: M86.18 Other acute osteomyelitis, other site (principal); L97.811 Non-pressure chronic ulcer of other part of right lower leg limited to breakdown of skin; L99 Other disorders of skin and subcutaneous tissue in diseases classified elsewhere; I87.2 Venous insufficiency (chronic) (peripheral); I70.213 Atherosclerosis of native arteries of extremities with intermittent claudication, bilateral legs; I83.93 Asymptomatic varicose veins of bilateral lower extremities; R60.0 Localized edema; N18.4 Chronic kidney disease, stage 4 (severe); I10 Essential (primary) hypertension; I42.9 Cardiomyopathy, unspecified; J44.9 Chronic obstructive pulmonary disease, unspecified; J84.9 Interstitial pulmonary disease, unspecified; M51.36 Other intervertebral disc degeneration, lumbar region; G47.33 Obstructive sleep apnea (adult) (pediatric); E78.00 Pure hypercholesterolemia, unspecified; A49.8 Other bacterial infections of unspecified site; E55.9 Vitamin D deficiency, unspecified; E66.01 Morbid (severe) obesity due to excess calories; R26.89 Other abnormalities of gait and mobility
CPT/HCPCS: 87071; 87075; 87205

== ENCOUNTER → 2021-08-06 | Outpatient (CLI) | payer MEDICARE | LOC: DX 08:35 | PROVIDERS: ATTEND Internal Medicine Infectious Disease | DX: M86.68 Other chronic osteomyelitis, other site (principal) | CPT/HCPCS: 36569; 71045 ==

== ENCOUNTER 2021-08-11 13:09 | Outpatient (RCR) | payer MEDICARE ==
[2021-08-02 12:10] LABS: BASOPHILS % 0.5 % (0.0-1.0); EOSINOPHILS # (AUTO) 0.2 (0.0-0.4); HEMATOCRIT 43.9 % (38.2-49.6); HEMOGLOBIN 13.1 g/dL (14.0-18.0); LYMPHOCYTES % 13.8 % (18.0-39.1); MEAN CORPUSCULAR HEMOGLOBIN 25.7 pg (28-32); MEAN CORPUSCULAR HGB CONC 29.8 g/dL (31-35); MEAN CORPUSCULAR VOLUME 86.2 fL (81-99); MONOCYTES # (AUTO) 0.9 (0.2-0.8); MONOCYTES % 12.3 % (4.4-11.3); NEUTROPHILS # (AUTO) 5.2 (2.1-6.9); NEUTROPHILS % 70.9 % (38.7-80.0); PLATELET COUNT 254 x10e3/uL (140-360); RED BLOOD COUNT 5.09 x10e6/uL (4.3-5.7); RED CELL DISTRIBUTION WIDTH 14.7 % (11.7-14.4)
[2021-08-02 12:50] LABS: ANION GAP 13.9 mmol/L (8-16); CALCIUM 8.3 mg/dL (8.4-10.2); CREATININE, SERUM 1.2 mg/dL (0.72-1.25); POTASSIUM 3.9 mmol/L (3.5-5.1)
[2021-08-02 12:52] LABS: INR 0.97; PROTHROMBIN TIME 13.8 seconds (11.9-14.5)
[2021-08-02 12:53] LABS: PARTIAL THROMBOPLASTIN TIME 29.7 seconds (23.8-35.5)
[~2021-08-11 13:09] MED LIST changes: +MINERAL OIL/PETROLAT/GLYCERI 2OZ CRM ONE
== END 2021-08-12 ==
LOC: WCC 13:09
PROVIDERS: ATTEND Family Medicine
DX: M86.68 Other chronic osteomyelitis, other site (principal); R60.0 Localized edema; L99 Other disorders of skin and subcutaneous tissue in diseases classified elsewhere; I70.213 Atherosclerosis of native arteries of extremities with intermittent claudication, bilateral legs; I87.2 Venous insufficiency (chronic) (peripheral); I83.93 Asymptomatic varicose veins of bilateral lower extremities; N18.4 Chronic kidney disease, stage 4 (severe); I10 Essential (primary) hypertension; G47.33 Obstructive sleep apnea (adult) (pediatric); I42.9 Cardiomyopathy, unspecified; E78.00 Pure hypercholesterolemia, unspecified; J44.9 Chronic obstructive pulmonary disease, unspecified; J84.9 Interstitial pulmonary disease, unspecified; M51.36 Other intervertebral disc degeneration, lumbar region; E55.9 Vitamin D deficiency, unspecified; E66.01 Morbid (severe) obesity due to excess calories; R26.89 Other abnormalities of gait and mobility; Z01.810 Encounter for preprocedural cardiovascular examination; Z01.811 Encounter for preprocedural respiratory examination
CPT/HCPCS: 11042 ×3; 11045 ×3; 29581 ×6; 36415; 80048; 85025; 85610; 85730; 99212; 99213 ×4; G0277 ×6

== ENCOUNTER → 2021-08-24 | Outpatient (CLI) | payer MEDICARE | LOC: RAD 14:00 | PROVIDERS: ATTEND Family Medicine Adult Medicine | DX: M79.605 Pain in left leg (principal); M79.604 Pain in right leg | CPT/HCPCS: 93971 ==

== ENCOUNTER 2021-09-10 11:01 | Outpatient (RCR) | payer MEDICARE ==
[~2021-09-10 11:01] MED LIST changes: +TRIAMCINOLONE ACET 0.1% CREAM 15 GM TUBE ONE
== END 2021-09-12 ==
LOC: WCC 11:01
PROVIDERS: ATTEND Family Medicine
DX: M86.68 Other chronic osteomyelitis, other site (principal); L97.811 Non-pressure chronic ulcer of other part of right lower leg limited to breakdown of skin; I70.213 Atherosclerosis of native arteries of extremities with intermittent claudication, bilateral legs; I87.2 Venous insufficiency (chronic) (peripheral); L99 Other disorders of skin and subcutaneous tissue in diseases classified elsewhere; R60.0 Localized edema; I83.93 Asymptomatic varicose veins of bilateral lower extremities; I10 Essential (primary) hypertension; J44.9 Chronic obstructive pulmonary disease, unspecified; J84.9 Interstitial pulmonary disease, unspecified; G47.33 Obstructive sleep apnea (adult) (pediatric); M51.36 Other intervertebral disc degeneration, lumbar region; I42.9 Cardiomyopathy, unspecified; E78.00 Pure hypercholesterolemia, unspecified; E55.9 Vitamin D deficiency, unspecified; E66.01 Morbid (severe) obesity due to excess calories; N18.4 Chronic kidney disease, stage 4 (severe); R26.89 Other abnormalities of gait and mobility; Z01.810 Encounter for preprocedural cardiovascular examination; Z01.811 Encounter for preprocedural respiratory examination
CPT/HCPCS: 11042 ×3; 11045 ×3; 15271; 15272; 29581 ×12; 36415; 82948; 97602 ×4; 99212 ×3; 99213 ×8; G0277 ×16; Q4121

== ENCOUNTER 2021-09-20 16:31 | Inpatient (IN) | payer MEDICARE ==
[~2021-09-20] VITALS: Ht 160 cm; Wt 108.4 kg
[2021-09-20] MEDS ORDERED: ACETAMINOPHEN 325 MG TAB PO ONE (17:45)
[2021-09-20] MEDS ORDERED: SODIUM CHLORIDE 0.9% 1000ML 1,000 ML IV ONE (17:45)
[2021-09-20 17:51] LABS: BASOPHILS % 0.5 % (0.0-1.0); EOSINOPHILS % 0.2 % (0.0-6.0); HEMATOCRIT 42.1 % (38.2-49.6); HEMOGLOBIN 13.1 g/dL (14.0-18.0); LYMPHOCYTES # (AUTO) 0.6 (1.0-3.2); LYMPHOCYTES % 10.2 % (18.0-39.1); MEAN CORPUSCULAR HEMOGLOBIN 26.4 pg (28-32); MEAN CORPUSCULAR HGB CONC 31.1 g/dL (31-35); MEAN CORPUSCULAR VOLUME 84.9 fL (81-99); MONOCYTES # (AUTO) 0.6 (0.2-0.8); MONOCYTES % 9.4 % (4.4-11.3); NEUTROPHILS # (AUTO) 4.9 (2.1-6.9); NEUTROPHILS % 78.9 % (38.7-80.0); PLATELET COUNT 246 x10e3/uL (140-360); RED BLOOD COUNT 4.96 x10e6/uL (4.3-5.7); RED CELL DISTRIBUTION WIDTH 15.4 % (11.7-14.4)
[2021-09-20 18:06] LABS: ALBUMIN/GLOBULIN RATIO 0.6 (0.8-2.0); ANION GAP 15.7 mmol/L (8-16); CALCIUM 8.2 mg/dL (8.4-10.2); CREATININE, SERUM 1.54 mg/dL (0.72-1.25); POTASSIUM 3.7 mmol/L (3.5-5.1)
[2021-09-20 18:12] LABS: CREATINE KINASE MB 2.3 ng/mL (0-5.0)
[2021-09-20 18:53] LABS: CLARITY,URINE SL CLOUDY (CLEAR); COLOR,URINE STRAW (YELLOW); KETONES,URINE NEGATIVE (NEGATIVE); LEUKOCYTE ESTERASE ,URINE NEGATIVE (NEGATIVE); NITRITE,URINE NEGATIVE (NEGATIVE); PROTEIN,URINE DIPSTICK >=300 (NEGATIVE); URINE UROBILINOGEN 0.2 mg/dL (0.2 - 1)
[2021-09-20 19:01] LABS: BACTERIA,URINE MODERATE /HPF
[2021-09-20] MEDS ORDERED: ACETAMINOPHEN 325 MG TAB PO PRN (19:15)
[2021-09-20] MEDS: Vancomycin IV 1 GM in SODIUM CHLORIDE 0.9% 250ML 250 ML IV SCH (19:54)
[2021-09-20] MEDS: FUROSEMIDE INJ 10 MG/ML 4 ML VIAL IV SCH (19:54)
[2021-09-20 20:00] VITALS: BP 113/69
[2021-09-20 22:27] VITALS: BP 113/69
[2021-09-20] MEDS ORDERED: ONDANSETRON HCL INJ 2MG/ML 2ML 2 MG/ML VIAL IV PRN (22:30)
[2021-09-20] MEDS ORDERED: HYDRALAZINE HCL 20 MG/ML VIAL IV PRN (22:30)
[2021-09-20] MEDS ORDERED: MELATONIN 3 MG TAB PO PRN (22:30)
[2021-09-20] MEDS ORDERED: DEXTROSE 50% SYRINGE 50 ML IV PRN (22:30)
[2021-09-20] MEDS ORDERED: ALBUTEROL SULF 0.083% NEB SOLN 3 ML NEB NEB PRN (22:30)
[2021-09-20] MEDS ORDERED: ATORVASTATIN CA10 MG PO (22:42)
[2021-09-20] MEDS ORDERED: HEPARIN 101 UNIT/1 M IV (22:42)
[2021-09-20] MEDS ORDERED: ISOSORBIDE MONO30 MG PO (22:42)
[2021-09-20] MEDS ORDERED: FUROSEMIDE40 MG PO (22:42)
[2021-09-20] MEDS ORDERED: AMLODIPINE BESYL5 MG PO (22:42)
[2021-09-20] MEDS ORDERED: CEFTRIAXONE2 G1 IV (22:42)
[2021-09-20] MEDS ORDERED: LOSARTAN POTASS50 MG PO (22:42)
[2021-09-20] MEDS ORDERED: CLOPIDOGREL75 MG PO (22:42)
[2021-09-20] MEDS ORDERED: CETIRIZINE HCL10 MG (22:42)
[2021-09-20] MEDS ORDERED: VANCOMYCIN HCL1 GM IV (22:42)
[2021-09-20 23:31] LABS: ABG HCO3 29 mmol/L (22-26); ABG PCO2 49 mmHg (35-45); ABG PH 7.38 (7.35-7.45); ABG PO2 93 mmHg (80-105); ABG TCO2 31
[2021-09-20] MEDS ORDERED: SODIUM CHLORIDE 0.9% 250ML 250 ML ONE (23:34)
[2021-09-21] VITALS (9 sets, daily range): BP systolic 106–133; BP diastolic 50–80
[2021-09-21 01:34] LABS: CREATINE KINASE MB 6.3 ng/mL (0-5.0)
[2021-09-21 05:25] LABS: BASOPHILS % 0.8 % (0.0-1.0); EOSINOPHILS # (AUTO) 0.2 (0.0-0.4); EOSINOPHILS % 3.1 % (0.0-6.0); HEMATOCRIT 41.1 % (38.2-49.6); HEMOGLOBIN 12.9 g/dL (14.0-18.0); LYMPHOCYTES % 19.2 % (18.0-39.1); MEAN CORPUSCULAR HEMOGLOBIN 26.4 pg (28-32); MEAN CORPUSCULAR HGB CONC 31.4 g/dL (31-35); MONOCYTES # (AUTO) 0.9 (0.2-0.8); MONOCYTES % 16.8 % (4.4-11.3); NEUTROPHILS % 58.9 % (38.7-80.0); PLATELET COUNT 197 x10e3/uL (140-360); RED BLOOD COUNT 4.89 x10e6/uL (4.3-5.7); RED CELL DISTRIBUTION WIDTH 15.5 % (11.7-14.4)
[2021-09-21 05:54] LABS: ALBUMIN 2.6 g/dL (3.5-5.0); ALBUMIN/GLOBULIN RATIO 0.7 (0.8-2.0); ANION GAP 13.3 mmol/L (8-16); CALCIUM 7.7 mg/dL (8.4-10.2); CREATININE, SERUM 1.36 mg/dL (0.72-1.25); POTASSIUM 3.3 mmol/L (3.5-5.1)
[2021-09-21] MEDS: Vancomycin IV 1 GM in SODIUM CHLORIDE 0.9% 250ML 250 ML IV SCH ×2 (06:47→17:25)
[2021-09-21] MEDS: INSULIN REGULAR, HUMAN 100 UNIT/1 ML SQ SCH ×4 (07:30→22:26)
[2021-09-21] MEDS: MULTIVITAMINS/MINERALS TAB PO SCH (09:22)
[2021-09-21] MEDS: LOSARTAN POTASSIUM 25 MG TAB PO SCH (09:22)
[2021-09-21] MEDS: FUROSEMIDE INJ 10 MG/ML 4 ML VIAL IV SCH ×2 (09:22→17:25)
[2021-09-21] MEDS: GUAIFENESIN/DEXTROMETHORPHAN LIQD 5 ML UDC PO PRN (09:29)
[2021-09-21 11:23] LABS: CREATINE KINASE MB 7.6 ng/mL (0-5.0)
[2021-09-21] MEDS ORDERED: PNEUMOCOCCAL VACCINE POLYVALENT 23 MCG/0.5 ML VIAL IM SCH (12:00)
[2021-09-21] MEDS ORDERED: INFLUENZA VIRUS VAC SPLIT INJ 0.5 ML SYR IM SCH (12:00)
[2021-09-21] MEDS: ENOXAPARIN SOD INJ 40 MG/0.4 ML SYR SC SCH (17:25)
[2021-09-21] MEDS: CLOPIDOGREL BISULFATE 75 MG TAB PO SCH (22:24)
[2021-09-21] MEDS: AMLODIPINE BESYLATE 5 MG TAB PO SCH (22:24)
[2021-09-21] MEDS: ATORVASTATIN 10 MG TAB PO SCH (22:24)
[2021-09-21] MEDS: ISOSORBIDE MONONITRATE 30 MG TAB CR PO SCH (22:25)
[2021-09-22] VITALS (8 sets, daily range): BP systolic 106–143; BP diastolic 68–75
[2021-09-22] MEDS: INSULIN REGULAR, HUMAN 100 UNIT/1 ML SQ SCH ×4 (07:30→20:44)
[2021-09-22] MEDS: MULTIVITAMINS/MINERALS TAB PO SCH (09:17)
[2021-09-22] MEDS: LOSARTAN POTASSIUM 25 MG TAB PO SCH (09:17)
[2021-09-22] MEDS: FUROSEMIDE INJ 10 MG/ML 4 ML VIAL IV SCH ×2 (09:18→16:27)
[2021-09-22] MEDS: Vancomycin IV 1 GM in SODIUM CHLORIDE 0.9% 250ML 250 ML IV SCH (09:19)
[2021-09-22] MEDS: ENOXAPARIN SOD INJ 40 MG/0.4 ML SYR SC SCH (16:27)
[2021-09-22] MEDS: AMLODIPINE BESYLATE 5 MG TAB PO SCH (21:12)
[2021-09-22] MEDS: ATORVASTATIN 10 MG TAB PO SCH (21:13)
[2021-09-22] MEDS: ISOSORBIDE MONONITRATE 30 MG TAB CR PO SCH (21:13)
[2021-09-22] MEDS: CLOPIDOGREL BISULFATE 75 MG TAB PO SCH (21:13)
[2021-09-23] VITALS (8 sets, daily range): BP systolic 107–149; BP diastolic 68–81
[2021-09-23] MEDS: INSULIN REGULAR, HUMAN 100 UNIT/1 ML SQ SCH ×4 (07:30→20:20)
[2021-09-23] MEDS: FUROSEMIDE INJ 10 MG/ML 4 ML VIAL IV SCH ×2 (08:42→16:26)
[2021-09-23] MEDS: MULTIVITAMINS/MINERALS TAB PO SCH (08:42)
[2021-09-23] MEDS: LOSARTAN POTASSIUM 25 MG TAB PO SCH (08:42)
[2021-09-23] MEDS ORDERED: ELIQUIS5 MG PO (12:15)
[2021-09-23 13:15] LABS: CALCIUM 8.1 mg/dL (8.4-10.2); CREATININE, SERUM 1.19 mg/dL (0.72-1.25)
[2021-09-23] MEDS: ENOXAPARIN SOD INJ 40 MG/0.4 ML SYR SC SCH (16:26)
[2021-09-23] MEDS: AMLODIPINE BESYLATE 5 MG TAB PO SCH (22:25)
[2021-09-23] MEDS: ISOSORBIDE MONONITRATE 30 MG TAB CR PO SCH (22:25)
[2021-09-23] MEDS: ATORVASTATIN 10 MG TAB PO SCH (22:25)
[2021-09-23] MEDS: CLOPIDOGREL BISULFATE 75 MG TAB PO SCH (22:25)
[2021-09-23] MEDS: GUAIFENESIN/DEXTROMETHORPHAN LIQD 5 ML UDC PO PRN (22:36)
[2021-09-24] VITALS (8 sets, daily range): BP systolic 106–153; BP diastolic 64–81
[2021-09-24] MEDS: INSULIN REGULAR, HUMAN 100 UNIT/1 ML SQ SCH ×4 (07:30→21:00)
[2021-09-24] MEDS: LOSARTAN POTASSIUM 25 MG TAB PO SCH (09:11)
[2021-09-24] MEDS: MULTIVITAMINS/MINERALS TAB PO SCH (09:11)
[2021-09-24] MEDS: FUROSEMIDE INJ 10 MG/ML 4 ML VIAL IV SCH (09:12)
[2021-09-24] MEDS ORDERED: CEFTRIAXON1 GM/50 M2 IV (13:03)
[2021-09-24] MEDS ORDERED: POTASSIUM CHLORIDE 20 MEQ TAB CR PO ONE ×3 (14:30→17:00)
[2021-09-24 15:05] LABS: ANION GAP 14.8 mmol/L (8-16); CALCIUM 8.4 mg/dL (8.4-10.2); CREATININE, SERUM 1.16 mg/dL (0.72-1.25)
[2021-09-24 15:09] LABS: POTASSIUM 2.8 mmol/L (3.5-5.1)
[2021-09-24] MEDS ORDERED: ONDANSETRON HCL 4 MG ORAL DISINTEGRATING TAB PO PRN (15:15)
[2021-09-24] MEDS ORDERED: POTASSIUM CHLORIDE 20 MEQ TAB CR PO SCH (17:00)
[2021-09-24] MEDS: FUROSEMIDE 40 MG TAB PO SCH (17:00)
[2021-09-24] MEDS: ENOXAPARIN SOD INJ 40 MG/0.4 ML SYR SC SCH (17:27)
[2021-09-24] MEDS: ATORVASTATIN 10 MG TAB PO SCH (21:57)
[2021-09-24] MEDS: GUAIFENESIN/DEXTROMETHORPHAN LIQD 5 ML UDC PO PRN (21:58)
[2021-09-24] MEDS: CLOPIDOGREL BISULFATE 75 MG TAB PO SCH (21:58)
[2021-09-24] MEDS: ISOSORBIDE MONONITRATE 30 MG TAB CR PO SCH (21:58)
[2021-09-24] MEDS: AMLODIPINE BESYLATE 5 MG TAB PO SCH (21:58)
[2021-09-25 00:32] VITALS: BP 126/59
[2021-09-25 05:42] VITALS: BP 135/67
[2021-09-25 06:37] LABS: CALCIUM 8.2 mg/dL (8.4-10.2); CREATININE, SERUM 1.01 mg/dL (0.72-1.25)
[2021-09-25] MEDS: INSULIN REGULAR, HUMAN 100 UNIT/1 ML SQ SCH ×2 (07:30→11:30)
[2021-09-25 08:00] VITALS: BP 152/88
[2021-09-25] MEDS: FUROSEMIDE 40 MG TAB PO SCH (08:46)
[2021-09-25] MEDS: LOSARTAN POTASSIUM 25 MG TAB PO SCH (08:47)
[2021-09-25] MEDS: MULTIVITAMINS/MINERALS TAB PO SCH (08:47)
[2021-09-25 11:57] VITALS: BP 130/65
[2021-09-25] MEDS ORDERED: K-DUR10 MEQ PO (13:11)
[2021-09-25 15:36] VITALS: BP 158/83
== END 2021-09-25 15:46 | disposition home health service (06) | DRG 602 ==
LOC: ER 16:35 → ERHOLD 19:17 → MED/SURG2 20:33
PROVIDERS: ADMIT Internal Medicine; ATTEND Internal Medicine
PROC: 02HV33Z Insertion of Infusion Device into Superior Vena Cava, Percutaneous Approach (ICD-10-PCS; principal; 2021-09-24)
DX: L03.115 Cellulitis of right lower limb (principal); G92.8 Other toxic encephalopathy; I50.33 Acute on chronic diastolic (congestive) heart failure; I13.0 Hypertensive heart and chronic kidney disease with heart failure and stage 1 through stage 4 chronic kidney disease, or unspecified chronic kidney disease; L97.919 Non-pressure chronic ulcer of unspecified part of right lower leg with unspecified severity; N39.0 Urinary tract infection, site not specified; N18.9 Chronic kidney disease, unspecified; R91.8 Other nonspecific abnormal finding of lung field; I25.10 Atherosclerotic heart disease of native coronary artery without angina pectoris; I87.2 Venous insufficiency (chronic) (peripheral); E78.5 Hyperlipidemia, unspecified; N40.1 Benign prostatic hyperplasia with lower urinary tract symptoms; N39.498 Other specified urinary incontinence; I49.3 Ventricular premature depolarization; Z20.822 Contact with and (suspected) exposure to COVID-19
CPT/HCPCS: 36415; 36584; 36600; 70450; 71045; 71250; 80048; 80053; 80202; 81001; 82140; 82550; 82553; 82607; 82805; 82948; 83605; 83880; 84443; 84484; 85025; 87040; 87086; 93005; 93306; 94799; 99251; 99284; J0696; J1650; J1817; J1940; J2185; J2543; J3370; J7030; J7050

== ENCOUNTER 2021-10-04 12:50 | Inpatient (IN) | payer MEDICARE ==
[2021-10-04] VITALS (7 sets, daily range): BP systolic 127–135; BP diastolic 62–80
[~2021-10-04] VITALS: Ht 160 cm; Wt 108.4 kg
[~2021-10-04 12:50] MED LIST changes: +AMLODIPINE BESYL5 MG PO; +ATORVASTATIN CA10 MG PO; +CEFTRIAXON1 GM/50 M2 IV; +CEFTRIAXONE2 G1 IV; +CETIRIZINE HCL10 MG; +CLOPIDOGREL75 MG PO; -COLLAGENASE OINTMENT 30 GM TUBE ONE; +ELIQUIS5 MG PO; +FUROSEMIDE40 MG PO; +HEPARIN 101 UNIT/1 M IV; +ISOSORBIDE MONO30 MG PO; +K-DUR10 MEQ PO; -LIDOCAINE VISC 2% SOLN 15 ML UDC ONE; +LOSARTAN POTASS50 MG PO; -MINERAL OIL/PETROLAT/GLYCERI 2OZ CRM ONE; -MINERAL OIL/PETROLAT/GLYCERI 6OZ BTL ONE; -MUPIROCIN 2% OINT 22 GM TUBE ONE; -TRIAMCINOLONE ACET 0.1% CREAM 15 GM TUBE ONE; +VANCOMYCIN HCL1 GM IV
[2021-10-04] MEDS ORDERED: CEFTRIAXONE 2 GM in SODIUM CHLORIDE 0.9% 100 ML IV SCH (15:00)
[2021-10-04] MEDS ORDERED: Vancomycin IV 1 GM in SODIUM CHLORIDE 0.9% 250ML 250 ML IV SCH (16:00)
[2021-10-04] MEDS: CEFTRIAXONE 2 GM in SODIUM CHLORIDE 0.9% 100 ML IV SCH (17:04)
[2021-10-04] MEDS: Vancomycin IV 1 GM in SODIUM CHLORIDE 0.9% 250ML 250 ML IV SCH (18:05)
[2021-10-04] MEDS ORDERED: METOPROLOL SUCC50 MG PO (20:26)
[2021-10-05] VITALS (8 sets, daily range): BP systolic 110–178; BP diastolic 56–89
[2021-10-05] MEDS ORDERED: ACETAMINOPHEN 325 MG TAB PO PRN (00:30)
[2021-10-05] MEDS ORDERED: GUAIFENESIN/CODEINE 5 ML LIQD PO PRN (01:30)
[2021-10-05] MEDS: Vancomycin IV 1 GM in SODIUM CHLORIDE 0.9% 250ML 250 ML IV SCH ×2 (04:47→16:35)
[2021-10-05 05:09] LABS: BASOPHILS % 0.3 % (0.0-1.0); EOSINOPHILS # (AUTO) 0.1 (0.0-0.4); EOSINOPHILS % 0.9 % (0.0-6.0); HEMATOCRIT 35.7 % (38.2-49.6); HEMOGLOBIN 10.7 g/dL (14.0-18.0); LYMPHOCYTES # (AUTO) 0.8 (1.0-3.2); LYMPHOCYTES % 8.8 % (18.0-39.1); MEAN CORPUSCULAR VOLUME 86.7 fL (81-99); MONOCYTES % 11.1 % (4.4-11.3); NEUTROPHILS # (AUTO) 6.8 (2.1-6.9); NEUTROPHILS % 78.7 % (38.7-80.0); PLATELET COUNT 278 x10e3/uL (140-360); RED BLOOD COUNT 4.12 x10e6/uL (4.3-5.7); RED CELL DISTRIBUTION WIDTH 14.6 % (11.7-14.4)
[2021-10-05 05:28] LABS: ANION GAP 13.9 mmol/L (8-16); CREATININE, SERUM 1.15 mg/dL (0.72-1.25); POTASSIUM 3.9 mmol/L (3.5-5.1)
[2021-10-05 05:29] LABS: ALBUMIN 2.5 g/dL (3.5-5.0); ALBUMIN/GLOBULIN RATIO 0.6 (0.8-2.0); CALCIUM 7.9 mg/dL (8.4-10.2)
[2021-10-05] MEDS: FUROSEMIDE 40 MG TAB PO SCH (08:22)
[2021-10-05] MEDS: APIXABAN 5 MG TABLET PO SCH ×2 (08:22→16:35)
[2021-10-05] MEDS: METOPROLOL SUCCINATE 50 MG TAB XL PO SCH (08:23)
[2021-10-05] MEDS: LOSARTAN POTASSIUM 25 MG TAB PO SCH (08:23)
[2021-10-05] MEDS: HYDROCODONE/APAP 7.5MG-325MG 1 EA TAB PO PRN ×2 (08:24→21:06)
[2021-10-05] MEDS: CEFTRIAXONE 2 GM in SODIUM CHLORIDE 0.9% 100 ML IV SCH (16:34)
[2021-10-05] MEDS: ATORVASTATIN 10 MG TAB PO SCH (21:05)
[2021-10-05] MEDS: CLOPIDOGREL BISULFATE 75 MG TAB PO SCH (21:05)
[2021-10-05] MEDS: AMLODIPINE BESYLATE 5 MG TAB PO SCH (21:05)
[2021-10-06] VITALS: BP 150/89
[2021-10-06 04:00] VITALS: BP 140/81
[2021-10-06] MEDS: Vancomycin IV 1 GM in SODIUM CHLORIDE 0.9% 250ML 250 ML IV SCH (05:00)
[2021-10-06 08:29] VITALS: BP 146/81
[2021-10-06 08:57] VITALS: BP 146/81
[2021-10-06] MEDS ORDERED: LACTULOSE SYRUP 20 GM/30 ML UDC PO PRN (10:15)
[2021-10-06] MEDS: FUROSEMIDE 40 MG TAB PO SCH (10:16)
[2021-10-06] MEDS: APIXABAN 5 MG TABLET PO SCH ×2 (10:16→17:10)
[2021-10-06] MEDS: METOPROLOL SUCCINATE 50 MG TAB XL PO SCH (10:17)
[2021-10-06] MEDS: LOSARTAN POTASSIUM 25 MG TAB PO SCH (10:19)
[2021-10-06 11:58] VITALS: BP 151/79
[2021-10-06] MEDS ORDERED: MELATONIN 3 MG TAB PO PRN (12:30)
[2021-10-06] MEDS ORDERED: ONDANSETRON HCL INJ 2MG/ML 2ML 2 MG/ML VIAL IV PRN (12:30)
[2021-10-06] MEDS ORDERED: HYDRALAZINE HCL 20 MG/ML VIAL IV PRN (12:30)
[2021-10-06 14:39] LABS: ANION GAP 16.2 mmol/L (8-16); CALCIUM 8.8 mg/dL (8.4-10.2); CREATININE, SERUM 1.23 mg/dL (0.72-1.25); POTASSIUM 4.2 mmol/L (3.5-5.1)
[2021-10-06] MEDS: CEFTRIAXONE 2 GM in SODIUM CHLORIDE 0.9% 100 ML IV SCH (17:10)
[2021-10-06 20:00] VITALS: BP 138/85
[2021-10-06] MEDS: ATORVASTATIN 10 MG TAB PO SCH (21:08)
[2021-10-06] MEDS: GABAPENTIN 100 MG CAP PO SCH (21:08)
[2021-10-06] MEDS: AMLODIPINE BESYLATE 5 MG TAB PO SCH (21:08)
[2021-10-06] MEDS: CLOPIDOGREL BISULFATE 75 MG TAB PO SCH (21:08)
[2021-10-07] VITALS (9 sets, daily range): BP systolic 113–146; BP diastolic 58–78
[2021-10-07] MEDS: HYDROCODONE/APAP 7.5MG-325MG 1 EA TAB PO PRN (00:17)
[2021-10-07 05:21] LABS: CALCIUM 8.4 mg/dL (8.4-10.2)
[2021-10-07] MEDS: GABAPENTIN 100 MG CAP PO SCH (09:53)
[2021-10-07] MEDS: METOPROLOL SUCCINATE 50 MG TAB XL PO SCH (09:53)
[2021-10-07] MEDS: LOSARTAN POTASSIUM 25 MG TAB PO SCH (09:53)
[2021-10-07] MEDS: APIXABAN 5 MG TABLET PO SCH (09:54)
[2021-10-07] MEDS: FUROSEMIDE 40 MG TAB PO SCH (09:57)
[2021-10-07] MEDS ORDERED: GABAPENTIN100 MG PO (12:20)
== END 2021-10-07 15:45 | disposition home or self-care (01) | DRG 300 ==
LOC: MED/SURG2 12:50
PROVIDERS: ADMIT Internal Medicine; ATTEND Internal Medicine
DX: I87.331 Chronic venous hypertension (idiopathic) with ulcer and inflammation of right lower extremity (principal); I48.92 Unspecified atrial flutter; L03.115 Cellulitis of right lower limb; L97.811 Non-pressure chronic ulcer of other part of right lower leg limited to breakdown of skin; Z68.41 Body mass index [BMI] 40.0-44.9, adult; E66.9 Obesity, unspecified; E78.5 Hyperlipidemia, unspecified; Z20.822 Contact with and (suspected) exposure to COVID-19; R50.9 Fever, unspecified; Z95.820 Peripheral vascular angioplasty status with implants and grafts; G47.33 Obstructive sleep apnea (adult) (pediatric); Z87.891 Personal history of nicotine dependence; I12.9 Hypertensive chronic kidney disease with stage 1 through stage 4 chronic kidney disease, or unspecified chronic kidney disease; N18.2 Chronic kidney disease, stage 2 (mild)
CPT/HCPCS: 36415; 71045; 74018; 80048; 80053; 80202; 82948; 85025; 93970; 96361; 99251; J0696; J3370; J7050

== ENCOUNTER 2021-10-11 10:40 | Outpatient (RCR) | payer MEDICARE ==
[~2021-10-11 10:40] MED LIST changes: +GABAPENTIN100 MG PO; +METOPROLOL SUCC50 MG PO; +MINERAL OIL/PETROLAT/GLYCERI 2OZ CRM ONE; +MINERAL OIL/PETROLAT/GLYCERI 6OZ BTL ONE
== END 2021-10-13 ==
LOC: WCC 10:40
PROVIDERS: ATTEND Family Medicine
DX: L97.811 Non-pressure chronic ulcer of other part of right lower leg limited to breakdown of skin (principal); M86.68 Other chronic osteomyelitis, other site; I87.2 Venous insufficiency (chronic) (peripheral); I89.0 Lymphedema, not elsewhere classified; L99 Other disorders of skin and subcutaneous tissue in diseases classified elsewhere; I83.93 Asymptomatic varicose veins of bilateral lower extremities; I70.213 Atherosclerosis of native arteries of extremities with intermittent claudication, bilateral legs; R60.0 Localized edema; J84.9 Interstitial pulmonary disease, unspecified; I42.9 Cardiomyopathy, unspecified; N18.4 Chronic kidney disease, stage 4 (severe); I10 Essential (primary) hypertension; G47.33 Obstructive sleep apnea (adult) (pediatric); M51.36 Other intervertebral disc degeneration, lumbar region; E78.00 Pure hypercholesterolemia, unspecified; E55.9 Vitamin D deficiency, unspecified; E66.01 Morbid (severe) obesity due to excess calories; R26.89 Other abnormalities of gait and mobility; Z01.810 Encounter for preprocedural cardiovascular examination; Z01.811 Encounter for preprocedural respiratory examination; J44.9 Chronic obstructive pulmonary disease, unspecified
CPT/HCPCS: 11042; 29581 ×2; 71046; 99211; 99213 ×5; G0277

== ENCOUNTER → 2021-10-27 | Outpatient (CLI) | payer MEDICARE ==
[~2021-10-27] MED LIST changes: -MINERAL OIL/PETROLAT/GLYCERI 2OZ CRM ONE; -MINERAL OIL/PETROLAT/GLYCERI 6OZ BTL ONE
== END ==
LOC: CARD 08:42
PROVIDERS: ATTEND Family Medicine
DX: I87.311 Chronic venous hypertension (idiopathic) with ulcer of right lower extremity (principal); L97.811 Non-pressure chronic ulcer of other part of right lower leg limited to breakdown of skin
CPT/HCPCS: 93922; 93926

== ENCOUNTER → 2021-11-12 | Outpatient (RCR) | payer MEDICARE ==
[~2021-11-12] MED LIST changes: +COLLAGENASE OINTMENT 30 GM TUBE ONE; +LIDOCAINE VISC 2% SOLN 15 ML UDC ONE; +MINERAL OIL/PETROLAT/GLYCERI 2OZ CRM ONE; +MINERAL OIL/PETROLAT/GLYCERI 6OZ BTL ONE; +MUPIROCIN 2% OINT 22 GM TUBE ONE
== END ==
LOC: WCC 10-14 12:32
PROVIDERS: ATTEND Family Medicine
DX: L97.812 Non-pressure chronic ulcer of other part of right lower leg with fat layer exposed (principal); I89.0 Lymphedema, not elsewhere classified; I70.213 Atherosclerosis of native arteries of extremities with intermittent claudication, bilateral legs; I87.2 Venous insufficiency (chronic) (peripheral); L99 Other disorders of skin and subcutaneous tissue in diseases classified elsewhere; I83.93 Asymptomatic varicose veins of bilateral lower extremities; R60.0 Localized edema; J84.9 Interstitial pulmonary disease, unspecified; N18.4 Chronic kidney disease, stage 4 (severe); I10 Essential (primary) hypertension; I42.9 Cardiomyopathy, unspecified; E78.00 Pure hypercholesterolemia, unspecified; J44.9 Chronic obstructive pulmonary disease, unspecified; G47.33 Obstructive sleep apnea (adult) (pediatric); M51.36 Other intervertebral disc degeneration, lumbar region; E55.9 Vitamin D deficiency, unspecified; E66.01 Morbid (severe) obesity due to excess calories; R26.89 Other abnormalities of gait and mobility; Z01.810 Encounter for preprocedural cardiovascular examination; Z01.811 Encounter for preprocedural respiratory examination
CPT/HCPCS: 11042 ×3; 11045 ×3; 29581 ×8; 87071; 87075; 87186; 87205; 97602 ×4; 99212 ×3; 99213 ×12; G0277 ×18

== ENCOUNTER 2021-11-29 13:20 | Outpatient (RCR) | payer MEDICARE ==
[~2021-11-29 13:20] MED LIST changes: -LIDOCAINE VISC 2% SOLN 15 ML UDC ONE; -MINERAL OIL/PETROLAT/GLYCERI 2OZ CRM ONE
[2021-11-29] MEDS ORDERED: COLLAGENASE OINTMENT 30 GM TUBE ONE (13:38)
[2021-11-29] MEDS ORDERED: MUPIROCIN 2% OINT 22 GM TUBE ONE (13:38)
[2021-11-29] MEDS ORDERED: MINERAL OIL/PETROLAT/GLYCERI 6OZ BTL ONE (13:38)
== END 2021-12-13 ==
LOC: WCC 13:20
PROVIDERS: ATTEND Family Medicine
DX: M86.68 Other chronic osteomyelitis, other site (principal); L97.812 Non-pressure chronic ulcer of other part of right lower leg with fat layer exposed; I89.0 Lymphedema, not elsewhere classified; R60.0 Localized edema; I83.93 Asymptomatic varicose veins of bilateral lower extremities; I87.2 Venous insufficiency (chronic) (peripheral); L99 Other disorders of skin and subcutaneous tissue in diseases classified elsewhere; I70.213 Atherosclerosis of native arteries of extremities with intermittent claudication, bilateral legs; I10 Essential (primary) hypertension; I42.9 Cardiomyopathy, unspecified; G47.33 Obstructive sleep apnea (adult) (pediatric); J84.9 Interstitial pulmonary disease, unspecified; E78.00 Pure hypercholesterolemia, unspecified; M51.36 Other intervertebral disc degeneration, lumbar region; J44.9 Chronic obstructive pulmonary disease, unspecified; B96.4 Proteus (mirabilis) (morganii) as the cause of diseases classified elsewhere; E55.9 Vitamin D deficiency, unspecified; R26.89 Other abnormalities of gait and mobility; E66.01 Morbid (severe) obesity due to excess calories; Z01.810 Encounter for preprocedural cardiovascular examination; Z01.811 Encounter for preprocedural respiratory examination; N18.4 Chronic kidney disease, stage 4 (severe)
CPT/HCPCS: 11042; 11045; 97602 ×4; 99213 ×7; G0277 ×7

== ENCOUNTER → 2022-01-12 | Outpatient (RCR) | payer MEDICARE ==
[~2022-01-12] MED LIST changes: -COLLAGENASE OINTMENT 30 GM TUBE ONE; +LIDOCAINE VISC 2% SOLN 15 ML UDC ONE; +MINERAL OIL/PETROLAT/GLYCERI 2OZ CRM ONE
== END ==
LOC: WCC 12-24 14:54
PROVIDERS: ATTEND Family Medicine
DX: M86.68 Other chronic osteomyelitis, other site (principal); L97.812 Non-pressure chronic ulcer of other part of right lower leg with fat layer exposed; R60.0 Localized edema; I89.0 Lymphedema, not elsewhere classified; I70.213 Atherosclerosis of native arteries of extremities with intermittent claudication, bilateral legs; L99 Other disorders of skin and subcutaneous tissue in diseases classified elsewhere; I83.93 Asymptomatic varicose veins of bilateral lower extremities; I87.2 Venous insufficiency (chronic) (peripheral); I42.9 Cardiomyopathy, unspecified; J84.9 Interstitial pulmonary disease, unspecified; N18.4 Chronic kidney disease, stage 4 (severe); I10 Essential (primary) hypertension; J44.9 Chronic obstructive pulmonary disease, unspecified; G47.33 Obstructive sleep apnea (adult) (pediatric); E78.00 Pure hypercholesterolemia, unspecified; E55.9 Vitamin D deficiency, unspecified; E66.01 Morbid (severe) obesity due to excess calories; M51.36 Other intervertebral disc degeneration, lumbar region; R26.89 Other abnormalities of gait and mobility; Z01.810 Encounter for preprocedural cardiovascular examination; Z01.811 Encounter for preprocedural respiratory examination
CPT/HCPCS: 87071; 87075; 87186; 87205; 88304